=== PATIENT | male | born 1955 | race African-American/Black ===

== ENCOUNTER 2020-11-09 06:31 | Emergency (ER) | payer OTHER, SELFPAY ==
[2020-11-09 06:41] VITALS: BP 168/100; PULSE 69; RESP 16; TEMP 35.9; O2SAT 100
--- NOTE | 2020-11-09 07:11 | ED.SKABFB ---
HPI - Skin/Abscess/Foreign Bdy General Chief complaint: Skin/Abscess/Foreign Body Stated complaint: skin rash, possible infection Time Seen by Provider: 11/09/20 07:01 Source: patient Mode of arrival: ambulatory Limitations: no limitations History of Present Illness HPI narrative: The patient is a 65 yo male who presents for evaluation of rash to his lower extremities, increased on right lower extremity. Pt with blistering and itching overlying the area. Pt states it is red and warm. Pt denies fever or chills. He has tried hydrocortisone cream without success. Pts main complaint is itching at this time. He denies fever or chills. No new soaps, lotions or detergents. Patient reported symptoms began after mowing his lawn. Pt states he was concerned it was a spider bite at first. He does have a few sal[place] on his abdomen per patient. Related Data Allergies Allergy/AdvReac Type Severity Reaction Status Date / Time No Known Allergies Allergy Verified 11/09/20 08:10 Review of Systems Review of Systems: CONSTITUTIONAL: Denies fever CARDIOVASCULAR: Denies chest pain RESPIRATORY: Denies cough or dyspnea. GASTROINTESTINAL: Denies abdominal pain SKIN: Right lower extremity rash, bites to abdomen MUSCULOSKELETAL: Denies back pain NEUROLOGIC: Denies headache [facility] Social History Social History (Updated 11/09/20 @ 07:39 by Pearl Mixon MD) Alcohol intake: never Substance use: never Gender identity (if verbalized by the patient): Male Exam Narrative: GENERAL: Awake, alert, conversant HEAD: Normocephalic, atraumatic. EYES: PERRLA and EOMI. ENT: Nares clear, no rhinorrhea or epistaxis. Mucous membranes moist. NECK: Supple. CHEST: No respiratory distress, breathing even and non labored HEART: Regular rate, sinus rhythm ABDOMEN:Non distended, non tender EXTREMITIES: Normal range of motion. No edema. SKIN: Warm, right lower extremity erythema, mild warmth, scattered blistering to the posterior aspect of the right leg, nontender, no crepitus or ecchymosis. Approximately 8 cm. Not circumferential. Intact distal sensation. NEURO:No focal deficits. Alert and oriented x3 Course Vital Signs Vital signs: Vital Signs Temperature 35.9 C L 11/09/20 06:41 Pulse Rate 69 11/09/20 06:41 Respiratory Rate 16 11/09/20 06:41 Blood Pressure 168/100 H 11/09/20 06:41 Pulse Oximetry 100 11/09/20 06:41 Temperature 35.9 C L 11/09/20 06:41 Pulse Rate 69 11/09/20 06:41 Respiratory Rate 16 11/09/20 06:41 Blood Pressure 168/100 H 11/09/20 06:41 Pulse Oximetry 100 11/09/20 06:41 MDM - Skin/Abscess/Foreign Bdy MDM Narrative Medical decision making narrative: Patient presenting for evaluation of itchy, blistering rash to right lower extremity as well as scattered areas to the abdomen. Given symptoms occurred after the patient was outside, high on the differential includes contact dermatitis versus allergic reaction. No sign of necrotizing infection. No crepitus or bullae. Patient is systemically well appearing. Patient may have a superimposed cellulitis given the erythema, will prescribe a watch and wait prescription for antibiotics as patient has limited primary care physician follow-up, has been itching the area, may be concerning for superimposed cellulitis given appearance. Patient given Prednisone and Benadryl in the ER. He was then discharged home in stable condition. Differential Diagnosis Differential diagnosis: Likely abscess of skin or subcutaneous tissue, urticaria, allergic reaction to drug, cellulitis, insect bites and contact dermatitis Discharge Plan Discharge Clinical Impression: Contact dermatitis Patient Disposition: Home, Self-Care Condition: Stable Instructions: Antibiotic Form, Contact Dermatitis (ED) Additional Instructions: Please contact your primary care physician for follow up from this visit. You will need to have your blood pressure monitored and may need to restart your
[2020-11-09] MEDS: predniSONE 20 MG TABLET 60 MG PO (08:11)
[2020-11-09] MEDS: diphenhydrAMINE HCl CAP 25 MG CAPSULE PO (08:11)
== END 2020-11-09 08:50 | disposition home or self-care (01) ==
PROVIDERS: Emergency Provider Emergency Medicine
DX: L25.9 Unspecified contact dermatitis, unspecified cause (principal)
CPT/HCPCS: 99283; A9270; J7512

== ENCOUNTER 2021-06-01 10:57 | Outpatient (CLI) | payer OTHER, SELFPAY ==
--- NOTE | ~2021-06-01 | XR_ITS ---
EXAMINATION: XR foot RT min 3V DATE: 06/01/2021 11:42 INDICATION: Right foot bunion. TECHNIQUE: 3 views of right foot including standing views were obtained. COMPARISON: None. FINDINGS: There is mild hallux valgus. No fracture. There is mild osteoarthritis of middle naviculocu neiform joint, first tarsometatarsal joint, and some of the interphalangeal joints. There are entheso phytes at the posterior and plantar aspects of calcaneal tuberosity. IMPRESSION: 1. Mild hallux valgus. 2. Mild polyarticular osteoarthritis. Reviewed, dictated and finalized at location A. EL ELASTIC OPERATOR [employer]
--- NOTE | ~2021-06-01 | XR_ITS ---
EXAMINATION: XR foot LT min 3V DATE: 06/01/2021 11:42 INDICATION: Bunion. TECHNIQUE: 3 views of left foot including standing views were obtained. COMPARISON: None. FINDINGS: Bone alignment is normal. No fracture. There is mild osteoarthritis of first metatarsophala ngeal joint and some of the interphalangeal joints and midfoot joints. There are enthesophytes at the posterior and plantar aspects of calcaneal tuberosity. IMPRESSION: 1. Mild polyarticular osteoarthritis. Reviewed, dictated and finalized at location A. T ADMINISTRATOR
== END 2021-06-01 10:58 | disposition home or self-care (01) ==
DX: M19.072 Primary osteoarthritis, left ankle and foot (principal); M19.071 Primary osteoarthritis, right ankle and foot; M20.11 Hallux valgus (acquired), right foot
CPT/HCPCS: 73630

== ENCOUNTER 2022-05-24 06:53 | Emergency (ER) | payer OTHER, SELFPAY ==
--- NOTE | ~2022-05-24 | XR_ITS ---
EXAMINATION: XR finger 4th LT min 2V DATE: 05/24/2022 08:18 INDICATION: Left hand fourth digit injury. TECHNIQUE: 3 views of left hand fourth digit were obtained. COMPARISON: None. FINDINGS: There is hyperextension of fourth proximal interphalangeal joint. No fracture. There is mil d osteoarthritis of fourth distal interphalangeal joint. There is laceration and soft tissue swelling of the fourth digit. IMPRESSION: 1. No fracture or radiopaque foreign body. Reviewed, dictated and finalized at location A. CTOR SYSTEMS
[2022-05-24 07:19] VITALS: BP 146/99; PULSE 74; RESP 14; TEMP 36.3; O2SAT 100
--- NOTE | 2022-05-24 08:02 | ED.GENADULT ---
HPI - General Adult General Chief complaint: Wound/Laceration Stated complaint: finger lac Time Seen by Provider: 05/24/22 06:58 History of Present Illness HPI narrative: 67-year-old male presenting to the emergency department for evaluation of a laceration to his left fourth finger. Patient reports he was working at [employer] last night broke a glass and accidentally cut his finger on the glass. Patient denies any other pain or injury. Patient denies any numbness or weakness. Patient's tetanus is unknown and patient will be treated with tetanus in the ED. Related Data Allergies Allergy/AdvReac Type Severity Reaction Status Date / Time No Known Allergies Allergy Verified 05/24/22 07:22 Review of Systems Review of Systems: Injury to left hand All systems reviewed & are unremarkable except as noted in HPI and below PMFSH Social History Social History (Updated 11/09/20 @ 07:39 by Pearl Mixon MD) Alcohol intake: never Substance use: never Gender identity (if verbalized by the patient): Male Exam Narrative: APPEARANCE: Well appearing, no pain, no distress, well-nourished. HEAD: normocephalic, atraumatic. EYES: PERRLA/EOMI, conjunctivae clear. NOSE: Normal no drainage NECK: Supple. No adenopathy, no masses. RESPIRATORY: Airway patent, respirations nonlabored. Clear to auscultation bilaterally, no rales, rhonchi, wheezing. CARDIOVASCULAR: Regular rate and rhythm without murmurs rubs or gallops. ABDOMINAL: Soft, nontender, nondistended, normal bowel sounds MUSCULOSKELETAL: Moves all extremities. Laceration to lateral side of left fourth finger. Normal range of motion. No numbness or weakness. No evidence of vascular or tendon injury. NEURO: Alert. Cranial nerves II through XII intact. Good gait. Good coordination SKIN: Warm, dry. Normal Color Course Vital Signs Vital signs: Vital Signs Temperature 97.4 F L 05/24/22 07:19 Pulse Rate 74 05/24/22 07:19 Respiratory Rate 14 05/24/22 07:19 Blood Pressure 146/99 H 05/24/22 07:19 Pulse Oximetry 100 05/24/22 07:19 Oxygen Delivery Room Air 05/24/22 07:19 Temperature 97.4 F L 05/24/22 07:19 Pulse Rate 74 05/24/22 07:19 Respiratory Rate 14 05/24/22 07:19 Blood Pressure 146/99 H 05/24/22 07:19 Pulse Oximetry 100 05/24/22 07:19 Oxygen Delivery Room Air 05/24/22 07:19 Medical Decision Making Vital Signs Vital Signs: Vital Signs Temperature 97.4 F L 05/24/22 07:19 Pulse Rate 74 05/24/22 07:19 Respiratory Rate 14 05/24/22 07:19 Blood Pressure 146/99 H 05/24/22 07:19 Pulse Oximetry 100 05/24/22 07:19 Oxygen Delivery Room Air 05/24/22 07:19 Temperature 97.4 F L 05/24/22 07:19 Pulse Rate 74 05/24/22 07:19 Respiratory Rate 14 05/24/22 07:19 Blood Pressure 146/99 H 05/24/22 07:19 Pulse Oximetry 100 05/24/22 07:19 Oxygen Delivery Room Air 05/24/22 07:19 Discharge Plan Discharge Prescriptions: No Action cephalexin 500 mg capsule 500 mg PO Q8H 10 Days Qty: 30 0RF diphenhydramine HCl [Benadryl] 25 mg capsule 25 mg PO TID PRN (Reason: allergic reaction) Qty: 14 0RF prednisone 10 mg Tablets,Dose Pack See Taper PO DAILY 12 Days Qty: 42 0RF Taper: Prednisone Taper from 60 mg;12 days 60 mg DAILY for 2 Days and 0 Hour 50 mg DAILY for 2 Days and 0 Hour 40 mg DAILY for 2 Days and 0 Hour 30 mg DAILY for 2 Days and 0 Hour 20 mg DAILY for 2 Days and 0 Hour 10 mg DAILY for 2 Days and 0 Hour Follow-up/Referrals: PHYSICIAN,OPERATIONS INTELLIGENCE SUPERINTENDENT [Primary Care Provider] -
[2022-05-24] MEDS: TETANUS,DIPHTHERIA,AC PERTUSSIS ADULT (0.5 ML) BOOSTRIX IM (08:06)
[2022-05-24 08:42] VITALS: BP 148/76; PULSE 90; RESP 16; O2SAT 98
--- NOTE | 2022-05-24 09:30 | ED.WOUNDLAC ---
HPI - Wound/Laceration General Chief Complaint: Wound/Laceration <JORDANA Cabral Last Filed: 05/24/22 15:05> Stated Complaint: finger lac <JORDANA Cabral Last Filed: 05/24/22 15:05> Time Seen by Provider: 05/24/22 06:58 <JORDANA Cabral Last Filed: 05/24/22 15:05> History of Present Illness HPI narrative: 67-year-old male here for evaluation of laceration to his left fourth digit sustained last night while he was at work. Patient states that he cut his finger on a piece of glass. He attempted to dress it at home but was unable to control the bleeding. His tetanus is up-to-date. He denies any numbness, tingling, difficulty moving the digit. He states he is ambidextrous. <JORDANA Cabral Last Filed: 05/24/22 15:05> Related Data Allergies/Adverse Reactions: Allergies Allergy/AdvReac Type Severity Reaction Status Date / Time No Known Allergies Allergy Verified 05/24/22 07:22 <JORDANA Cabral Last Filed: 05/24/22 15:05> Review of Systems Review of Systems: Gen.: Denies fevers or chills Eyes: Denies eye pain or visual change ENT: Denies congestion Respiratory: Denies shortness of breath or cough CV: Denies chest pain or palpitations GI: Denies abdominal pain nausea, emesis or diarrhea denies burning, urgency, frequency or hematuria Musculoskeletal: Denies back pain or muscle pain Neuro: Denies numbness, tingling, weakness or focal weakness Skin: Reports laceration to left fourth digit Except as documented, all other systems reviewed and negative <JORDANA Cabral Last Filed: 05/24/22 15:05> [facility] Social History Social History: Social History (Updated 11/09/20 @ 07:39 by Pearl Mixon MD) Alcohol intake: never Substance use: never Gender identity (if verbalized by the patient): Male <JORDANA Cabral Filed: 05/24/22 15:05> Exam Narrative: Gen: Alert, oriented, no acute distress Eyes: EOMI, no icterus Pulm: Respirations even and unlabored, symmetric thorax expansion, no audible stridor or visible cyanosis CV: Regular rate per telemetry GI: No distension, no voluntary/involuntary guarding Neuro: AOx4, moves all extremities without apparent difficulty or weakness, follows commands MSK: Full range of motion in all digits without pain. Brisk capillary refill. Sensation intact to entirety of hand. Skin: Patient has a 2-1/2 cm irregular laceration to the ulnar aspect of his left fourth digit with no active bleeding Psych: Normal mood/affect, insight/judgement good, adequate fund of knowledge, recent/remote memory intact <Nayeli Gupta PA-C - Last Filed: 05/24/22 15:05> Course PRE KINDERGARTEN TEACHER/PA Physician Supervision I saw this patient primarily and the PA did the procedure and started the documentation. <Jadon Huynh MD - Last Filed: 05/24/22 18:57> Vital Signs Vital signs: Vital Signs Temperature 97.4 F L 05/24/22 07:19 Pulse Rate 74 05/24/22 07:19 Respiratory Rate 14 05/24/22 07:19 Blood Pressure 146/99 H 05/24/22 07:19 Pulse Oximetry 100 05/24/22 07:19 Oxygen Delivery Room Air 05/24/22 07:19 Temperature 97.4 F L 05/24/22 07:19 Pulse Rate 90 05/24/22 08:42 Respiratory Rate 16 05/24/22 08:42 Blood Pressure 148/76 H 05/24/22 08:42 Pulse Oximetry 98 05/24/22 08:42 Oxygen Delivery Room Air 05/24/22 07:19 <Nayeli Gupta PA-C - Last Filed: 05/24/22 15:05> Vital Signs Temperature 97.4 F L 05/24/22 07:19 Pulse Rate 74 05/24/22 07:19 Respiratory Rate 14 05/24/22 07:19 Blood Pressure 146/99 H 05/24/22 07:19 Pulse Oximetry 100 05/24/22 07:19 Oxygen Delivery Room Air 05/24/22 07:19 Temperature 97.4 F L 05/24/22 07:19 Pulse Rate 90 05/24/22 08:42 Respiratory Rate 16 05/24/22 08:42 Blood Pressure 148/76 H 05/24/22 08:42 Pulse Oximetry 98 05/24/22 08:42 Oxygen Delivery Ro
== END 2022-05-24 09:51 | disposition home or self-care (01) ==
PROVIDERS: Emergency Provider Emergency Medicine
DX: S61.215A Laceration without foreign body of left ring finger without damage to nail, initial encounter (principal); Z23 Encounter for immunization; W25.XXXA Contact with sharp glass, initial encounter
CPT/HCPCS: 12002; 73140; 90471; 90715; 99283

== ENCOUNTER 2024-02-20 11:36 | Inpatient (IN) | payer MEDICARE, SELFPAY ==
[2024-02-20] VITALS (9 sets, daily range): BP systolic 117–141; BP diastolic 75–95; PULSE 64–116; RESP 16–20; TEMP 35.8–36.7; O2SAT 99–100; BMI 22.1
--- NOTE | ~2024-02-20 | CT_ITS ---
EXAMINATION: CT abdomen pelvis w con DATE: 02/20/2024 13:17 INDICATION: Dark red stools. Prior perforated gastric ulcer. TECHNIQUE: Computed tomography (CT) of the abdomen and pelvis was performed with 100 mL Omnipaque-350 intravenous contrast. Automated exposure control and iterative reconstruction technique were employe d. The dose-length product was 244.98 mGy-cm. COMPARISON: None FINDINGS: Mild atelectasis in the bilateral lower lobes. There is mild bronchiectasis in the left lower lobe. M ild pectus excavatum. Heart size is normal. Atherosclerotic coronary artery calcification. No pericar dial or pleural effusion. There are multiple scattered small hepatic cysts measuring up to 1.2 cm. Ga llbladder, spleen, pancreas and bilateral adrenal glands are normal. 3 nonobstructing left renal ston es, the largest in the upper pole measuring 4 mm. Small region of cortical scarring and 5 mm cyst at the upper pole of the right kidney. There is moderate colonic diverticulosis with a sigmoid predomina nce. There is no adjacent inflammatory change to suggest diverticulitis. Small bowel and appendix ar e normal. Coarse calcifications within the enlarged prostate. Bladder is normal. No free intraperiton eal gas or fluid. Small fat-containing left inguinal hernia. No pathologically enlarged abdominal or pelvic lymphadenopathy. Lumbar levoscoliosis with moderate to severe spondylosis. IMPRESSION: 1. Diverticulosis. No acute intra-abdominal/pelvic process. 2. Nonobstructing left nephrolithiasis. 3. Prostatomegaly. Reviewed, dictated and finalized at location A. [facility]
--- NOTE | ~2024-02-20 | CT_ITS ---
EXAMINATION: CTA abdomen pelvis DATE: 02/22/2024 08:53 INDICATION: Active gastrointestinal hemorrhage. TECHNIQUE: Computed tomographic angiography (CTA) of the abdomen and pelvis was performed with 100 mL Omnipaque-350 intravenous contrast. Automated exposure control and iterative reconstruction techniqu e were employed. The dose-length product was 501.28 mGy-cm. Maximum intensity projection 3D-reconstru ctions of the aorta and other arteries were constructed by the technologist on a separate workstation . COMPARISON: CT abdomen and pelvis 02/20/2024 FINDINGS: The visualized portions of the lung bases demonstrate mild atelectasis. No pleural effusion . The heart size is normal. No pericardial effusion. Pectus excavatum is noted. There are cysts in th e liver measuring up to 14 mm. The gallbladder, spleen, pancreas, and adrenal glands are normal. Ther e is cortical thinning of the kidneys. There is a 2 mm stone in right kidney. There are 4 stones in t he left kidney measuring up to 5 mm. There is a left inguinal hernia containing fat. The prostate is mildly enlarged. There is diverticulosis of the colon without evidence of diverticulitis. There is li quid stool in the colon suggesting diarrhea. There are no dilated loops of bowel. The appendix is not visualized. There is no significant stenosis of celiac axis. There is moderate stenosis of superior mesenteric artery. There is no significant stenosis of the renal arteries. There is moderate stenosis of inferior mesenteric artery. There are no pathologically enlarged lymph nodes. There is no free in traperitoneal fluid. There is thoracolumbar levoscoliosis and severe spondylosis. IMPRESSION: 1. 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 2. Left inguinal hernia containing fat. Reviewed, dictated and finalized at location A. NT DEVELOPMENT ANALYST IMPRESSION: 1. Moderate stenosis of superior mesenteric artery and inferior mesenteric viki ry. 2. Left inguinal hernia containing fat.
--- NOTE | 2024-02-20 12:15 | ECG_ITS ---
Test Date: 2024-02-20 12:58:29 Measurements Intervals [place] Rate: 67 P: 60 MD: 152 QRS: -58 QRSD: 113 T: -28 QT: 395 QTc: 420 Interpretive Statements SINUS RHYTHM POSSIBLE LEFT ATRIAL ENLARGEMENT [ INCOMPLETE RIGHT BUNDLE BRANCH BLOCK CANNOT R/O SEPTAL INFARCT, AGE INDETERMINATE LEFT ANTERIOR FASCICULAR BLOCK POSSIBLE LEFT VENTRICULAR HYPERTROPHY ST-T WAVE ABNORMALITY IN INFEERIOR LEADS- CONSIDER ISCHEMIA ABNORMAL ECG No previous ECG available for comparison Electronically Signed On 02-20-2024 13:08:24 LEAK DETECTOR by Chalino Montgomery D.O.
[2024-02-20] MEDS: PANTOPRAZOLE SODIUM IV 40 MG VIAL IV PUSH (12:33)
[2024-02-20 12:37] LABS: Basophils Percent Auto 0.3 % (0.2-1.2); Eosinophils Percent Auto 0.3 % (0-4.4); Hematocrit 40.4 % (42.0-52.0); Hemoglobin 12.9 g/dL (14.0-18.0); Immature Granulocyte Absolute 0.01 K/mm3 (0.00-0.031); Immature Granulocyte Percent A 0.1 % (0-0.5); Lymphocytes Absolute Auto 1.58 K/mm3 (0.9-3.2); Lymphocytes Percent Auto 23.7 % (18.3-44.2); Mean Corpuscular HGB Conc 31.9 g/dl (32-36); Mean Corpuscular Hemoglobin 26.9 pg (26-34); Mean Corpuscular Volume 84.2 fl (80-100); Mean Platelet Volume 9.8 fl (7.4-10.4); Monocytes Absolute Auto 0.4 K/mm3 (0.1-0.6); Monocytes Percent Auto 5.5 % (2.6-8.5); Neutrophils Absolute Auto 4.7 K/mm3 (1.3-6.7); Neutrophils Percent Auto 70.1 % (45.5-73.1); Platelet Count Result 218 k/mm3 (150-375); Red Cell Distribution Width 15.4 % (11.5-14.5); White Blood Count 6.7 K/mm3 (4.5-10.0)
[2024-02-20 12:48] LABS: INR 1.1; Prothrombin Time 14.5 Seconds (11.1-14.7)
[2024-02-20 12:49] LABS: Alanine Aminotransferase 15 U/L (6-50); Albumin Level 4.1 g/dL (3.5-5.1); Alkaline Phosphatase 77 U/L (38-126); Anion Gap 6 mmol/L (4-12); Aspartate Amino Transferase 24 U/L (17-59); Bilirubin,Total 0.5 mg/dL (0.2-1.3); Blood Urea Nitrogen 16 mg/dL (9-20); Calcium 8.4 mg/dL (8.4-10.2); Carbon Dioxide 26 mmol/L (22-30); Chloride 110 mmol/L (98-107); Estimated CRCL calculation 60 ml/min; Estimated Glomerular Filt Rate > 60; Glucose 123 mg/dL (65-110); Lipase 97 U/L (23-300); Partial Thromboplastin Time 27.9 Seconds (22.3-36.8); Potassium 3.9 mmol/L (3.4-5.0); Sodium 142 mmol/L (137-145)
--- NOTE | 2024-02-20 13:00 | ED_ITS ---
HPI - GI Bleed General Chief complaint: GI Bleed Stated complaint: Blood in stool Time Seen by Provider: 02/20/24 11:52 Source: patient Mode of arrival: ambulatory Limitations: no limitations History of Present Illness HPI Narrative: 68 years old male drove himself to the emergency room, came from work complaining of bloody diarrhea started yesterday, today have at least 3 BM with fresh red bright blood. Patient denies any chest pain shortness of breath abdominal pain or back pain. Patient is not on anti-platelet or anticoagulant medication. Patient used to have history of hypertension stop taking medication on his own over 1 year ago. Patient does not smoke or drink or use drugs. History of perforated peptic ulcer disease 1997 at [place] Related Data Allergies Allergy/AdvReac Type Severity Reaction Status Date / Time No Known Allergies Allergy Verified 02/20/24 11:57 Review of Systems Review of Systems: All systems reviewed & are unremarkable except as noted in HPI and below PMFSH Past Medical History Medical History (Updated 02/20/24 @ 16:01 by Luna Pastor MD) Hypertension Social History Social History (Updated 02/20/24 @ 15:21 by Maryellen Aly PA-C) Social History: Surrogate medical decision maker: Code status: Full code. Alcohol intake: never Substance use: never Exam Narrative: General appearance: Well-developed, well-nourished Skin: Normal color Head: Normocephalic, nontraumatic Eyes: Clear conjunctiva ENT: Oropharynx normal, ears normal, nose normal Neck: Supple, nontender Chest and respiratory: Airway patent, no respiratory distress, no accessory muscle use Heart: Regular rate/rhythm Abdomen: Soft, nontender, no organomegaly, quiet bowel sounds rectal exam showed fresh red bright blood guaiac-positive Vascular: Normal peripheral pulses, normal capillary refill. 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 tested, no gross motor deficit Course Consultations Consultation #1: DR HO Date: 02/20/24 Vital Signs Vital signs: Vital Signs Temperature 35.8 C L 02/20/24 11:41 Pulse Rate 98 02/20/24 11:41 Respiratory Rate 20 02/20/24 11:41 Blood Pressure 123/86 02/20/24 11:41 Pulse Oximetry 100 02/20/24 11:41 Oxygen Delivery Room Air 02/20/24 11:41 Temperature 35.8 C L 02/20/24 11:41 Pulse Rate 68 02/20/24 14:41 Respiratory Rate 16 02/20/24 14:41 Blood Pressure 138/95 H 02/20/24 14:41 Pulse Oximetry 99 02/20/24 14:41 Oxygen Delivery Room Air 02/20/24 11:41 MDM - GI Bleed MDM Narrative Medical decision making narrative: 68 years old male drove himself to the emergency room com plaining of bloody diarrhea started yesterday. Vital signs are stable Physical examination showing comfortable patient, rectal exam showing liquidy pink stool, guaiac positive Differential diagnosis include viral gastroenteritis inflammatory bowel disease infectious bowel disease, GI bleed, electrolyte imbalance, anemia Blood workup today includes CBC, CMP, lipase and troponin showed hemoglobin of 12.9, hematocrit 40.4, no old records for comparison, otherwise insignificant findings CT abdomen and pelvis with IV contrast showed no acute intra-abdominal process EKG on arrival showed normal sinus rhythm at 67 beats per minute no old EKG for comparison Consult Dr. Ho Admit to hospitalist Differential Diagnosis Differential diagnosis: Likely other (As above) Medical Records Attestation: I reviewed the patient's medical records. Lab Data Attestation: I reviewed the patient's lab results. 02/20/24 12:29 02/20/24 12:29 Labs: Lab Results 02/20/24 02/20/24 02/20/24 Range/Units 12:28 12:29 15:02 WBC 6.7 (4.5-10.0) K/mm3 RBC 4.80 (4.6-6.20) M/mm3 Hgb 12.9 L (14.0-18.0) g/dL Hct 40.4 L (42.0-52.0) % MCV 84.2 (80-100) fl MCH 26.9 (26-34) pg MCHC 31.9 L (32-36) g/dl RDW 15.4 H (11.5-14.5) % Plt Count 218 (150-375) k/mm3 MPV 9.8 (7.4-10.4) fl Immature Gran % (Auto) 0.1 (0-0.5) % Neut % (Auto) 70.1 (45.5-73.1) % Lymph % (Auto) 23.7 (18.3-44.2) % [place] % (Auto) 5.5 (2.6-8.5) % Eos % (Auto) 0.3 (0-4.4) % Baso % (Auto) 0.3 (0.2-1.2) % Lymph # (Auto) 1.58 (0.9-3.2) K/mm3 [place] # (Auto) 0.4 (0.1-0.6) K/mm3 Eos # (Auto) 0.0 (0-0.3) K/mm3 Baso # (Auto) 0.0 (0.0-0.1) K/mm3 Abs Immat Gran (auto) 0.01 (0.00-0.031) K/mm3 Absolute Neuts (auto) 4.7 (1.3-6.7) K/mm3 Absolute Nucleated RBC 0.000 (0.0-0.012) K/mm3 Nucleated RBC % 0.0 (0.0-0.2) % PT 14.5 (11.1-14.7) Seconds INR 1.1 APTT 27.9 (22.3-36.8) Seconds Sodium 142 (137-145) mmol/L Potassium 3.9 (3.4-5.0) mmol/L Chloride 110 H (98-107) mmol/L Carbon Dioxide 26 (22-30) mmol/L Anion Gap 6 (4-12) mmol/L BUN 16 (9-20) mg/dL Creatinine 1.00 (0.7-1.3) mg/dL Estim Creat Clear Calc 60 ml/min Estimated GFR > 60 (59 - ) Glucose 123 H (65-110) mg/dL Calcium 8.4 (8.4-10.2) mg/dL Total Bilirubin 0.5 (0.2-1.3) mg/dL AST 24 (17-59) U/L ALT 15 (6-50) U/L Alkaline Phosphatase 77 (38-126) U/L Troponin I < 0.012 < 0.012 (0.000-0.034) ng/mL Total Protein 7.0 (6.3-8.2) g/dL Albumin 4.1 (3.5-5.1) g/dL Lipase 97 (23-300) U/L Blood Type A Positive Antibody Screen Negative Imaging Data Radiologist's impression: Impressions Abdomen/Pelvis CT 02/20/24 13:28 IMPRESSION: 1. Diverticulosis. No acute intra-abdominal/pelvic process. 2. Nonobstructing left nephrolithiasis. 3. Prostatomegaly. ECG Data EKG #1: Attestation: I personally reviewed and interpreted this ECG as follows: ECG completion date: 02/20/24 ECG completion time: 15:53 Prior ECG tracings: not available for review Interpretation: Normal sinus rhythm at 67 beats per minute, left atrial enlargement, incomplete right bundle-branch block, cannot rule out septal infarct, age indeterminate, possibly left ventricular hypertrophy, ST T-wave abnormality in inferior leads consider ischemia, abnormal EKG no previous EKG available for comparison EKG #2: Attestation: I personally reviewed and interpreted this ECG as follows: ECG completion date: 02/20/24 Prior ECG tracings: available for review Interpretation: Normal sinus rhythm at 69 beats per minute, left atrial enlargement, incomplete right bundle-branch block, possibly left ventricular hypertrophy, nonspecific T- wave abnormality compared to EKG on 02/20/2020 for myocardial infarction finding no longer present Critical Care Time Critical Care Time Critical Care Time: No Discharge Plan Discharge Clinical Impression: Bloody diarrhea Patient Disposition: Still a Patient Condition: Stable Additional Instructions: ADMIT TO HOSPITAL Prescriptions: No Action cephalexin 500 mg capsule 500 mg PO Q8H 10 Days Qty: 30 0RF diphenhydramine HCl [Benadryl] 25 mg capsule 25 mg PO TID PRN (Reason: allergic reaction) Qty: 14 0RF prednisone 10 mg Tablets,Dose Pack See Taper PO DAILY 12 Days Qty: 42 0RF Taper: Prednisone Taper from 60 mg;12 days 60 mg DAILY for 2 Days and 0 Hour 50 mg DAILY for 2 Days and 0 Hour 40 mg DAILY for 2 Days and 0 Hour 30 mg DAILY for 2 Days and 0 Hour 20 mg DAILY for 2 Days and 0 Hour 10 mg DAILY for 2 Days and 0 Hour cephalexin 500 mg capsule 500 mg PO Q12H Qty: 10 0RF Follow-up/Referrals: UNKNOWN,DOCTOR [Primary Care Provider] -
--- NOTE | 2024-02-20 13:08 | PC.NURSE ---
MD Pastor at bedside to assess pt. after EKG result. Pt. denies chest pain or SOB. No additional interventions at this time.
--- NOTE | 2024-02-20 13:55 | ECG_ITS ---
Test Date: 2024-02-20 15:15:19 Measurements Intervals [place] Rate: 69 P: 64 CT: 158 QRS: -55 QRSD: 115 T: -26 QT: 406 QTc: 437 Interpretive Statements SINUS RHYTHM POSSIBLE LEFT ATRIAL ENLARGEMENT INCOMPLETE RIGHT BUNDLE BRANCH BLOCK LEFT ANTERIOR FASCICULAR BLOCK POSSIBLE LEFT VENTRICULAR HYPERTROPHY CANNOT R/O SEPTAL INFARCT, AGE INDETERMINATE ST-T WAVE ABNORMALITY IN INFERIOR LEADS- CONSIDER ISCHEMIA ABNORMAL ECG Compared to ECG 02/20/2024 12:58:29 NO SIGNIFICANT CHANGE Electronically Signed On 02-20-2024 19:25:33 RESEARCH PHYSICIST by Chalino Montgomery D.O.
[2024-02-20 14:01] LABS: Troponin I < 0.012 ng/mL (0.000-0.034)
--- NOTE | 2024-02-20 15:20 | P.HP_ITS ---
H&P: HPI History of Present Illness Date/Time: 02/20/24 16:20 Chief Complaint: Blood in stools. Narrative: This is a very pleasant 68-year-old male with hypertension (not currently on medication) and remote history of peptic ulcers who presented to the emergency department via private vehicle for evaluation of blood in stools. The patient provides the following history. He was in his usual state of health yesterday evening when he developed diarrhea with blood tinged stools. Since that time he has had several more episodes of bloody stools described as pink to bright red blood. He is otherwise feeling okay. He denies straining to have a bowel movement. Weight has remained stable. He has never had a colonoscopy and denies family history of colon cancer. He also denies fever, chills, sweats, lightheadedness, dizziness, abdominal pain, nausea, and vomiting. Of note, an EKG was performed on arrival to the ED and showed ST T-wave abnormalities for which the inorganic chemistry professor was consulted. As the patient is having no chest pain whatsoever they do not recommend any for interventions at this time but will follow with the patient. With further questioning the patient denies having a cardiac history and has not had exertional chest pain or shortness of breath. In the ED: Vital signs were stable on arrival. Labs were significant for hemoglobin of 12.9, hematocrit 40.4%, glucose 123. CT of the abdomen and pelvis showed no acute findings but noted diverticulosis, nonobstructing left nephrolithiasis, and prostatomegaly. He is being admitted in this setting for close monitoring and GI consultation. Review of Systems Review of Systems: 12 systems were reviewed and are negativ e except for as per HPI. [facility] Past Medical History Medical History (Updated 02/20/24 @ 21:49 by Maryellen Aly PA-C) Hypertension Perforated peptic ulcer (1977) Surgical History Surgical History (Updated 02/20/24 @ 21:46 by Maryellen Aly PA-C) History of exploratory laparotomy for perforated peptic ulcer Family History Family History (Updated 02/20/24 @ 21:46 by Maryellen Aly PA-C) Other Family history non-contributory Social History Social History (Updated 02/20/24 @ 21:47 by Maryellen Aly PA-C) Social History: Surrogate medical decision maker: Cindy Matson, spouse. Code status: Full code. Smoking status: Never smoker Alcohol intake: never Substance use: never Substance use type: does not use Do You Feel Safe in your Home?: Yes Lack of Transportation: No Lack of Food: Never True Current Housing: I Have Housing Concerned About Future Housing: No Difficulty Paying Gas/Electric Bills: No Difficulty Paying for Meds: No Currently Unemployed: No Education: Decline to Answer Difficulty w/ Childcare or Family Care: No Spiritual care concerns: No Meds Home Medications and Allergies Home Medications Medication Instructions Recorded Confirmed Type No Home Medications 02/20/24 02/20/24 History Allergies Allergy/AdvReac Type Severity Reaction Status Date / Time No Known Allergies Allergy Verified 02/20/24 11:57 Vital Signs Vital Signs - 24 hr 02/20/24 11:41 02/20/24 14:41 Temperature 96.4 F L Pulse Rate 98 68 Respiratory Rate 20 16 Blood Pressure 123/86 138/95 H Pulse Oximetry 100 99 Oxygen Delivery Room Air Exam Narrative: General: Nontoxic-appearing gentleman the semi-Garcia position in bed. Weight: 70 kg. BMI: 22.1. HEENT: PERRL, EOMI. Sclera anicteric. Oral mucosa moist. Oropharynx clear. Neck: Supple. Respiratory: Lungs are clear to auscultation bilaterally. Cardiovascular: Regular rate and rhythm with S1-S2. Gastrointestinal: Abdomen is soft, nontender, and nondistended with positive bowel sounds. Skin: Warm and dry. No rash or lesions on limited exam. Extremities: No cyanosis, clubbing, or edema. Radial and pedal pulses intact. Neurological: Alert. Cranial nerves 2-12 are grossly intact. No gross focal deficits to casual conversation. Psychiatric: Pleasant and cooperative with normal mood and affect. Judgment and insight intact. H&P: Results Labs Labs: Short CBC 02/20/24 Range/Units 12:29 WBC 6.7 (4.5-10.0) K/mm3 Hgb 12.9 L (14.0-18.0) g/dL Hct 40.4 L (42.0-52.0) % Plt Count 218 (150-375) k/mm3 BMP 02/20/24 12:29 Sodium 142 Potassium 3.9 Chloride 110 H Carbon Dioxide 26 BUN 16 Creatinine 1.00 Glucose 123 H Calcium 8.4 Cardiac Enzymes 02/20/24 Range/Units 12:28 Troponin I < 0.012 (0.000-0.034) ng/mL Liver Function 02/20/24 Range/Units 12:29 Total Bilirubin 0.5 (0.2-1.3) mg/dL AST 24 (17-59) U/L ALT 15 (6-50) U/L Alkaline Phosphatase 77 (38-126) U/L Albumin 4.1 (3.5-5.1) g/dL Imaging Abdomen/Pelvis CT 02/20/24 13:28 IMPRESSION: 1. Diverticulosis. No acute intra-abdominal/pelvic process. 2. Nonobstructing left nephrolithiasis. 3. Prostatomegaly. Assessment and Plan Assessment and plan (1) Rectal bleeding: Code(s): K62.5 - Hemorrhage of anus and rectum Status: Acute (2) Diverticulosis: Code(s): K57.90 - Diverticulosis of intestine, part unspecified, without perforation or abscess without bleeding Status: Acute (3) Abnormal EKG: Code(s): R94.31 - Abnormal electrocardiogram [ECG] [EKG] Status: Acute (4) Hypertension: Code(s): I10 - Essential (primary) hypertension Status: Acute Plan The patient presented to the emergency department for evaluation of bloody diarrhea as detailed in HPI. Labs, imaging, EKG, and all reports were personally reviewed. CT scan did not show any acute findings but did note diverticulosis. Bleeding may be related to diverticulosis however does not seem to be in significant quantities. GI has been consulted and their input is appreciated. Hemoglobin and hematocrit will be trended. Regarding his EKG changes, he gives no history of exertional chest pain and is not having any discomfort. ED physician spoke with the on-call interventionalist to recommended monitoring on telemetry, obtain echocardiogram, and consulting with the inorganic chemistry professor. Blood pressures were reviewed and they are stable. His home medications will be reviewed and resumed as appropriate. Findings and treatment plan were discussed with the patient. Questions were solicited and answered to satisfaction. The patient's medical management will be taken over by the hospitalist team in a.m. Quality VTE Prophylaxis VTE prophylaxis: mechanical ordered If No VTE Prophylaxis Answer both mechanical and pharmacologic: Reason no pharmacologic proph: medical contraindication (rectal bleeding) The patient has been admitted under observation status. Hospitalist [facility] Advance Care Plan I have confirmed that the patient's Advanced Care Plan is present, code status is documented, or surrogate decision maker is listed in patient medical record.: Yes Medication Reconciliation I have utilized all available resources to obtain, update and review the patients current medications (includes all prescriptions, OTC, herbals, cannabis, and nutritional supplements).: Yes
[2024-02-20 15:28] LABS: Troponin I < 0.012 ng/mL (0.000-0.034)
--- NOTE | 2024-02-20 15:28 | WPDGICN ---
Assessment and Plan Assessment and plan (1) Rectal bleeding: Code(s): K62.5 - Hemorrhage of anus and rectum Status: Acute Assessment and Plan: The patient's rectal bleeding episodes are compatible with inflammatory type of diarrhea rather than a massive lower GI bleeding. Diverticular bleeding is another possibility, but this is typically more dramatic and associated with maroon stools rather than bright red, especially if the patient is hemodynamically stable. Colorectal cancer is another possibility to be kept in mind, especially because the patient never had a colonoscopy. We will send stools for culture and obtain H&H every 12 hours for monitoring purposes. Since the patient never had a colonoscopy, will plan to do it sometime next week once his cardiac status is clarified. GI Consult Note Consult date/time: 02/20/24 15:28 HPI: Matt Matson is a 68 year old male with a history of hypertension and perforated peptic ulcer operated in 1997. He was in his usual state of health until last night when he started to have diarrhea with blood tinged stools. There is no tenesmus, abdominal pain, fever, previous change in bowel habits the, near syncopal episodes, weakness or dizziness. The patient describes pinkish stools and had 3 bowel movements in the past 12 hours. He was found to be hemodynamically stable at his arrival to emergency room and is currently being admitted for monitoring purposes and for the evaluation of new onset EKG abnormalities in the absence of chest pain or shortness of breath. Review of Systems Review of Systems: All systems reviewed & are unremarkable except as noted in HPI and below PMFSH Past Medical History Medical History (Updated 02/20/24 @ 15:21 by Maryellen Aly PA-C) Hypertension Social History Social History (Updated 02/20/24 @ 15:21 by Maryellen Aly PA-C) Social History: Surrogate medical decision maker: Code status: Full code. Alcohol intake: never Substance use: never Meds Home Medications and Allergies Home Medications Medication Instructions Recorded Confirmed Type cephalexin 500 mg capsule 500 mg PO Q8H 10 days #30 caps 11/09/20 Rx diphenhydramine HCl 25 mg capsule 25 mg PO TID PRN allergic reaction 11/09/20 Rx (Benadryl) #14 caps prednisone 10 mg tablets in a dose See Taper PO DAILY 12 days #42 tabs 11/09/20 Rx pack cephalexin 500 mg capsule 500 mg PO Q12H #10 caps 05/24/22 Rx Allergies Allergy/AdvReac Type Severity Reaction Status Date / Time No Known Allergies Allergy Verified 02/20/24 11:57 Vital Signs Vital Signs - 24 hr 02/20/24 11:41 02/20/24 14:41 Temperature 96.4 F L Pulse Rate 98 68 Respiratory Rate 20 16 Blood Pressure 123/86 138/95 H Pulse Oximetry 100 99 Oxygen Delivery Room Air Exam Const: General: cooperative and healthy appearing Resp: Effort & Inspection: normal respiratory effort and able to speak in complete sentences Auscultation: clear to auscultation bilaterally Cardio: Rate: regular rate Rhythm: regular rhythm GI: Inspection: normal to inspection GI Palp: No No hepatosplenomegaly present Auscultation: normal bowel sounds Rectal Exam: deferred Skin: General skin exam: normal color Psych: Appearance: grossly normal Mental Status: mental status grossly normal Results Labs 02/20/24 12:29 02/20/24 12:29 Labs: Short CBC 02/20/24 Range/Units 12:29 WBC 6.7 (4.5-10.0) K/mm3 Hgb 12.9 L (14.0-18.0) g/dL Hct 40.4 L (42.0-52.0) % Plt Count 218 (150-375) k/mm3 BMP 02/20/24 12:29 Sodium 142 Potassium 3.9 Chloride 110 H Carbon Dioxide 26 BUN 16 Creatinine 1.00 Glucose 123 H Calcium 8.4 Cardiac Enzymes 02/20/24 Range/Units 12:28 Troponin I < 0.012 (0.000-0.034) ng/mL Liver Function 02/20/24 Range/Units 12:29 Total Bilirubin 0.5 (0.2-1.3) mg/dL AST 24 (17-59) U/L ALT 15 (6-50) U/L Alkaline Phosphatase 77 (38-126) U/L Albumin 4.1 (3.5-5.1) g/dL
[2024-02-20 17:02] LABS: Basophils Percent Auto 0.3 % (0.2-1.2); Eosinophils Percent Auto 0.4 % (0-4.4); Hematocrit 42.9 % (42.0-52.0); Immature Granulocyte Absolute 0.01 K/mm3 (0.00-0.031); Immature Granulocyte Percent A 0.1 % (0-0.5); Lymphocytes Absolute Auto 2.01 K/mm3 (0.9-3.2); Lymphocytes Percent Auto 29.9 % (18.3-44.2); Mean Corpuscular HGB Conc 32.6 g/dl (32-36); Mean Corpuscular Volume 82.8 fl (80-100); Mean Platelet Volume 10.5 fl (7.4-10.4); Monocytes Absolute Auto 0.3 K/mm3 (0.1-0.6); Monocytes Percent Auto 4.9 % (2.6-8.5); Neutrophils Absolute Auto 4.3 K/mm3 (1.3-6.7); Neutrophils Percent Auto 64.4 % (45.5-73.1); Platelet Count Result 204 k/mm3 (150-375); Red Blood Count 5.18 M/mm3 (4.6-6.20); Red Cell Distribution Width 15.3 % (11.5-14.5); White Blood Count 6.7 K/mm3 (4.5-10.0)
--- NOTE | 2024-02-20 17:13 | PC.NURSE ---
This RN received report from MEDICAL MICROBIOLOGIST.
--- NOTE | 2024-02-20 17:39 | ADMGEN ---
This patient, Matt Matson, was admitted to IMU Room 200-01 @ [id number]. Patient/family oriented to hospital policies and general routines including ID bracelet, bed and alarms, visiting hours, pain management, procedures, bathroom and other care routines, personal items, smoking policy, room service/diet, and visiting hours. Information on how to activate the Rapid Response Team has been discussed. Patient/Family are encouraged to report perceived risks to care and to ask questions if they do not understand what they are told or what they should do.
[2024-02-20] MEDS: SODIUM CHLORIDE 0.9% IV 1,000 ML 150 ML IV CONT (18:13)
[2024-02-20 22:48] LABS: Hematocrit 31.8 % (42.0-52.0); Hemoglobin 10.4 g/dL (14.0-18.0)
[2024-02-21] VITALS (16 sets, daily range): BP systolic 128–148; BP diastolic 63–82; PULSE 63–84; RESP 20; TEMP 36.5–37.4; O2SAT 99–100
[2024-02-21] MEDS: SODIUM CHLORIDE 0.9% IV 1,000 ML 150 ML IV CONT (00:28)
[2024-02-21 04:06] LABS: Hematocrit 30.6 % (42.0-52.0); Hemoglobin 9.6 g/dL (14.0-18.0); Mean Corpuscular HGB Conc 31.4 g/dl (32-36); Mean Corpuscular Hemoglobin 26.4 pg (26-34); Mean Corpuscular Volume 84.1 fl (80-100); Mean Platelet Volume 10.3 fl (7.4-10.4); Platelet Count Result 171 k/mm3 (150-375); Red Blood Count 3.64 M/mm3 (4.6-6.20); White Blood Count 5.2 K/mm3 (4.5-10.0)
[2024-02-21 04:28] LABS: Anion Gap 2 mmol/L (4-12); Blood Urea Nitrogen 15 mg/dL (9-20); Calcium 7.3 mg/dL (8.4-10.2); Carbon Dioxide 23 mmol/L (22-30); Chloride 113 mmol/L (98-107); Estimated CRCL calculation 66 ml/min; Estimated Glomerular Filt Rate > 60; Glucose 90 mg/dL (65-110); Potassium 3.8 mmol/L (3.4-5.0); Sodium 138 mmol/L (137-145)
[2024-02-21 09:49] LABS: Hematocrit 30.1 % (42.0-52.0); Hemoglobin 9.7 g/dL (14.0-18.0)
--- NOTE | 2024-02-21 10:50 | PM.CNCAR ---
Assessment and Plan Assessment and plan (1) Abnormal EKG: Code(s): R94.31 - Abnormal electrocardiogram [ECG] [EKG] Status: Acute Plan Hypertension controlled Abnormal EKG with nonspecific ST wave changes likely related to hypertension was unremarkable cardiac examination Lower GI bleeding Plan Transthoracic echocardiogram Can proceed with colonoscopy and endoscopy from cardiac standpoint for evaluation management of GI bleeding History of Present Illness History of Present Illness Consult date/time: 02/21/24 10:50 Reason For Visit: Bloody Diarrhea/EDG With Ischemic Changes Narrative: 68-year-old male patient presented to the hospital with recurrent episodes of bloody bowel movements. Since Friday patient has several bowel movements that are fall of bright red blood. There is no pain or discomfort. He has no fever or chills. Is no history of colon cancer. In the ED he was found to have EKG abnormality with nonspecific ST wave changes. Patient denies any chest pain or shortness of breath. He has no history of heart problem. Has history of hypertension has been controlled. Review of Systems Review of Systems: All systems reviewed & are unremarkable except as noted in HPI and below PMFSH Past Medical History Medical History (Updated 02/20/24 @ 21:49 by Maryellen Aly PA-C) Hypertension Perforated peptic ulcer (1977) Surgical History Surgical History (Updated 02/20/24 @ 21:46 by Maryellen Aly PA-C) History of exploratory laparotomy for perforated peptic ulcer Family History Family History (Updated 02/20/24 @ 21:46 by Maryellen Aly PA-C) Other Family history non-contributory Social History Social History (Updated 02/20/24 @ 21:47 by Maryellen Aly PA-C) Social History: Surrogate medical decision maker: Cindy Matson, spouse. Code status: Full code. Smoking status: Never smoker Alcohol intake: never Substance use: never Substance use type: does not use Do You Feel Safe in your Home?: Yes Lack of Transportation: No Lack of Food: Never True Current Housing: I Have Housing Concerned About Future Housing: No Difficulty Paying Gas/Electric Bills: No Difficulty Paying for Meds: No Currently Unemployed: No Education: Decline to Answer Difficulty w/ Childcare or Family Care: No Spiritual care concerns: No Meds Home Medications and Allergies Home Medications Medication Instructions Recorded Confirmed Type No Home Medications 02/20/24 02/20/24 History Allergies Allergy/AdvReac Type Severity Reaction Status Date / Time No Known Allergies Allergy Verified 02/20/24 11:57 Vital Signs Vital Signs - 24 hr 02/20/24 11:41 02/20/24 14:41 02/20/24 16:39 Temperature 35.8 C L Pulse Rate 98 68 85 Respiratory Rate 20 16 16 Blood Pressure 123/86 138/95 H 130/86 Pulse Oximetry 100 99 99 Oxygen Delivery Room Air 02/20/24 18:02 02/20/24 18:00 02/20/24 17:30 Temperature 36.7 C Pulse Rate 116 H 64 Respiratory Rate 20 Blood Pressure 141/83 H Pulse Oximetry 99 Oxygen Delivery Room Air 02/20/24 20:12 02/20/24 23:27 02/20/24 20:00 Temperature 36.7 C 36.7 C Pulse Rate 71 64 74 Respiratory Rate 20 20 Blood Pressure 128/79 117/75 Pulse Oximetry 100 100 Oxygen Delivery 02/20/24 22:00 02/21/24 00:00 02/21/24 02:00 Temperature Pulse Rate 68 63 68 Respiratory Rate Blood Pressure Pulse Oximetry Oxygen Delivery 02/21/24 04:04 02/21/24 04:00 02/21/24 06:00 Temperature 36.8 C Pulse Rate 74 67 64 Respiratory Rate 20 Blood Pressure 148/72 H Pulse Oximetry 99 Oxygen Delivery 02/21/24 08:00 Temperature 37.4 C Pulse Rate 78 Respiratory Rate 20 Blood Pressure 146/78 H Pulse Oximetry 99 Oxygen Delivery Exam Const: General: comfortable and no acute distress Other: Able to lie flat HENMT: Face/Nose/Sinus: Normal nares present and no epistaxis Mouth: Yes moist mucous membranes Eyes: Sclera: sclerae normal Pupils: Equal, round and reactive pupils present Neck: Neck: supple and no JVD Carotids: no bruits Resp: Auscultation: clear to auscultation bilaterally and lung sounds not diminished Other: No chest wall tenderness Cardio: Rate: regular rate Rhythm: regular rhythm Heart sounds: no gallops, no murmurs and no rubs GI: GI Palp: Yes Soft to palpation and No Tenderness to palpation present (GI) Auscultation: normal bowel sounds Skin: General skin exam: normal color, rashes and/or lesions noted and no erythema Other: Warm Neuro: Cranial nerves: Yes Equal, round and reactive pupils present Speech: normal speech Other: No obvious focal deficit or facial asymmetry Extrem: General: no edema Other: Normal capillary refills Intact distal pulses. Results Labs and Meds 02/21/24 09:32 02/21/24 03:38 Lab results: Cardiac Enzymes 02/20/24 02/20/24 02/20/24 Range/Units 12:28 12: 15:02 AST 24 (17-59) U/L Troponin I < 0.012 < 0.012 (0.000-0.034) ng/mL Coagulation 02/20/24 Range/Units 12:29 PT 14.5 (11.1-14.7) Seconds APTT 27.9 (22.3-36.8) Seconds CBC 02/20/24 02/20/24 02/20/24 Range/Units 12: 16:50 22:33 WBC 6.7 6.7 (4.5-10.0) K/mm3 RBC 4.80 5.18 (4.6-6.20) M/mm3 Hgb 12.9 L 14.0 10.4 L D (14.0-18.0) g/dL Hct 40.4 L 42.9 31.8 L (42.0-52.0) % Plt Count 218 204 (150-375) k/mm3 Lymph # (Auto) 1.58 2.01 (0.9-3.2) K/mm3 Greene # (Auto) 0.4 0.3 (0.1-0.6) K/mm3 Eos # (Auto) 0.0 0.0 (0-0.3) K/mm3 Baso # (Auto) 0.0 0.0 (0.0-0.1) K/mm3 02/21/24 02/21/24 Range/Units 03:39 09:32 WBC 5.2 (4.5-10.0) K/mm3 RBC 3.64 L (4.6-6.20) M/mm3 Hgb 9.6 L 9.7 L (14.0-18.0) g/dL Hct 30.6 L 30.1 L (42.0-52.0) % Plt Count 171 (150-375) k/mm3 Lymph # (Auto) (0.9-3.2) K/mm3 Greene # (Auto) (0.1-0.6) K/mm3 Eos # (Auto) (0-0.3) K/mm3 Baso # (Auto) (0.0-0.1) K/mm3 Comprehensive Metabolic Panel 02/20/24 02/21/24 Range/Units 12:29 03:38 Sodium 142 138 (137-145) mmol/L Potassium 3.9 3.8 (3.4-5.0) mmol/L Chloride 110 H 113 H (98-107) mmol/L Carbon Dioxide 26 23 (22-30) mmol/L BUN 16 15 (9-20) mg/dL Creatinine 1.00 0.90 (0.7-1.3) mg/dL Glucose 123 H 90 (65-110) mg/dL Calcium 8.4 7.3 L (8.4-10.2) mg/dL AST 24 (17-59) U/L ALT 15 (6-50) U/L Alkaline Phosphatase 77 (38-126) U/L Total Protein 7.0 (6.3-8.2) g/dL Albumin 4.1 (3.5-5.1) g/dL Intake and Output 02/20/24 02/21/24 02/21/24 23:59 07:59 15:59 Intake Total 240 1000 Balance 240 1000 Intake: IV 1000 Sodium Chloride 0.9% IV 1,000 1000 ml @ 150 mls/hr IV CONT .[id number] ONE Rx#:[id number] Oral 240 Other: # Unmeasured Voids 1 Number of Bowel Movements Today 1 Patient Weight 02/21/24 23:59 Weight 70 kg
--- NOTE | 2024-02-21 11:34 | P.PNIM_ITS ---
Progress Note: A&P Assessment and Plan (1) Rectal bleeding: Code(s): K62.5 - Hemorrhage of anus and rectum Status: Acute (2) Diverticulosis: Code(s): K57.90 - Diverticulosis of intestine, part unspecified, without perforation or abscess without bleeding Status: Acute (3) Abnormal EKG: Code(s): R94.31 - Abnormal electrocardiogram [ECG] [EKG] Status: Acute (4) Hypertension: Code(s): I10 - Essential (primary) hypertension Status: Acute Plan GI bleed r/o Dysentery GI eval noted Patient noted he is having cathie blood without stool F/u stool culture per GI for Colonoscopy GI following Monitor Hb, iron panel pending Diverticulosis continue monitoring HTN titrate home meds with clinical course DVT prophylaxis on SCDs Subjective Date/time seen: 02/21/24 11:34 Interval history: Patient noted he is still having bloody bowel movement Gi planning colonoscopy Review of Systems Review of Systems: 12 systems were reviewed and are negativ e except for as per HPI. Exam Narrative: General: Nontoxic-appearing gentleman the semi-Garcia position in bed. Weight: 70 kg. BMI: 22.1. HEENT: PERRL, EOMI. Sclera anicteric. Oral mucosa moist. Oropharynx clear. Neck: Supple. Respiratory: Lungs are clear to auscultation bilaterally. Cardiovascular: Regular rate and rhythm with S1-S2. Gastrointestinal: Abdomen is soft, nontender, and nondistended with positive bowel sounds. Skin: Warm and dry. No rash or lesions on limited exam. Extremities: No cyanosis, clubbing, or edema. Radial and pedal pulses intact. Neurological: Alert. Cranial nerves 2-12 are grossly intact. No gross focal deficits to casual conversation. Psychiatric: Pleasant and cooperative with normal mood and affect. Judgment and insight intact. Objective Data Vital Signs Vital Signs: Vital Signs - 24 hr 02/20/24 11:41 02/20/24 14:41 02/20/24 16:39 Temperature 96.4 F L Pulse Rate 98 68 85 Respiratory Rate 20 16 16 Blood Pressure 123/86 138/95 H 130/86 Pulse Oximetry 100 99 99 Oxygen Delivery Room Air 02/20/24 18:02 02/20/24 18:00 02/20/24 17:30 Temperature 98.0 F Pulse Rate 116 H 64 Respiratory Rate 20 Blood Pressure 141/83 H Pulse Oximetry 99 Oxygen Delivery Room Air 02/20/24 20:12 02/20/24 23:27 02/20/24 20:00 Temperature 98.0 F 98.0 F Pulse Rate 71 64 74 Respiratory Rate 20 20 Blood Pressure 128/79 117/75 Pulse Oximetry 100 100 Oxygen Delivery 02/20/24 22:00 02/21/24 00:00 02/21/24 02:00 Temperature Pulse Rate 68 63 68 Respiratory Rate Blood Pressure Pulse Oximetry Oxygen Delivery 02/21/24 04:04 02/21/24 04:00 02/21/24 06:00 Temperature 98.2 F Pulse Rate 74 67 64 Respiratory Rate 20 Blood Pressure 148/72 H Pulse Oximetry 99 Oxygen Delivery 02/21/24 08:00 Temperature 99.4 F Pulse Rate 78 Respiratory Rate 20 Blood Pressure 146/78 H Pulse Oximetry 99 Oxygen Delivery Intake/Output Intake/Output: Intake & Output 02/18/24 02/19/24 02/20/24 02/21/24 23:59 23:59 23:59 23:59 Intake Total 240 1000 Balance 240 1000 Meds/Results Medications: Active Medications Generic Name Dose Route Start Last Admin Trade Name Freq PRN Reason Stop Dose Admin Acetaminophen 650 mg 02/20/24 16:02 Acetaminophen 325 Mg Tablet PO Q4H PRN Mild Pain (1-3) or Fever Perflutren Lipid Microsphere 0 ml 02/20/24 21:50 Perflutren Lipid Microspheres 1.5 Ml Vial Diluted To 10 Ml Total Volume IV PUSH 02/23/24 21:50 ONCE PRN adequate visualization Protocol Radiology Results: ITS Impressions Abdomen/Pelvis CT 02/20/24 13:28 IMPRESSION: 1. Diverticulosis. No acute intra-abdominal/pelvic process. 2. Nonobstructing left nephrolithiasis. 3. Prostatomegaly. Labs Labs: Laboratory Results - last 24 hr 02/20/24 02/20/24 02/20/24 12:28 12:29 15:02 WBC 6.7 RBC 4.80 Hgb 12.9 L Hct 40.4 L MCV 84.2 MCH 26.9 MCHC 31.9 L RDW 15.4 H Plt Count 218 MPV 9.8 Immature Gran % (Auto) 0.1 Neut % (Auto) 70.1 Lymph % (Auto) 23.7 [place] % (Auto) 5.5 Eos % (Auto) 0.3 Baso % (Auto) 0.3 Lymph # (Auto) 1.58 [place] # (Auto) 0.4 Eos # (Auto) 0.0 Baso # (Auto) 0.0 Abs Immat Gran (auto) 0.01 Absolute Neuts (auto) 4.7 Absolute Nucleated RBC 0.000 Nucleated RBC % 0.0 PT 14.5 INR 1.1 APTT 27.9 Sodium 142 Potassium 3.9 Chloride 110 H Carbon Dioxide 26 Anion Gap 6 BUN 16 Creatinine 1.00 Estim Creat Clear Calc 60 Estimated GFR > 60 Glucose 123 H Calcium 8.4 Magnesium Total Bilirubin 0.5 AST 24 ALT 15 Alkaline Phosphatase 77 Troponin I < 0.012 < 0.012 Total Protein 7.0 Albumin 4.1 Lipase 97 Blood Type A Positive Antibody Screen Negative 02/20/24 02/20/24 02/21/24 16:50 22:33 03:38 WBC 6.7 RBC 5.18 Hgb 14.0 10.4 L D Hct 42.9 31.8 L MCV 82.8 MCH 27.0 MCHC 32.6 RDW 15.3 H Plt Count 204 MPV 10.5 H Immature Gran % (Auto) 0.1 Neut % (Auto) 64.4 Lymph % (Auto) 29.9 [place] % (Auto) 4.9 Eos % (Auto) 0.4 Baso % (Auto) 0.3 Lymph # (Auto) 2.01 [place] # (Auto) 0.3 Eos # (Auto) 0.0 Baso # (Auto) 0.0 Abs Immat Gran (auto) 0.01 Absolute Neuts (auto) 4.3 Absolute Nucleated RBC 0.000 Nucleated RBC % 0.0 PT INR APTT Sodium 138 Potassium 3.8 Chloride 113 H Carbon Dioxide 23 Anion Gap 2 L BUN 15 Creatinine 0.90 Estim Creat Clear Calc 66 Estimated GFR > 60 Glucose 90 Calcium 7.3 L Magnesium 2.0 Total Bilirubin AST ALT Alkaline Phosphatase Troponin I Total Protein Albumin Lipase Blood Type Antibody Screen 02/21/24 02/21/24 03:39 09:32 WBC 5.2 RBC 3.64 L Hgb 9.6 L 9.7 L Hct 30.6 L 30.1 L MCV 84.1 MCH 26.4 MCHC 31.4 L RDW 15.0 H Plt Count 171 MPV 10.3 Immature Gran % (Auto) Neut % (Auto) Lymph % (Auto) [place] % (Auto) Eos % (Auto) Baso % (Auto) Lymph # (Auto) [place] # (Auto) Eos # (Auto) Baso # (Auto) Abs Immat Gran (auto) Absolute Neuts (auto) Absolute Nucleated RBC Nucleated RBC % PT INR APTT Sodium Potassium Chloride Carbon Dioxide Anion Gap BUN Creatinine Estim Creat Clear Calc Estimated GFR Glucose Calcium Magnesium Total Bilirubin AST ALT Alkaline Phosphatase Troponin I Total Protein Albumin Lipase Blood Type Antibody Screen Quality VTE Prophylaxis VTE prophylaxis: mechanical ordered
[2024-02-21 12:23] LABS: Iron 89 ug/dL (49-181)
--- NOTE | 2024-02-21 12:24 | WPDGIPROGNO ---
Progress Note: A&P Assessment and Plan (1) Diverticulosis: Code(s): K57.90 - Diverticulosis of intestine, part unspecified, without perforation or abscess without bleeding Status: Acute (2) Bloody diarrhea: Code(s): R19.7 - Diarrhea, unspecified Status: Acute (3) Rectal bleeding: Code(s): K62.5 - Hemorrhage of anus and rectum Status: Acute Assessment and Plan: patient is already on clear liquid diet closely monitor the patient H&H has dropped down to 9.6 patient continues to pass red blood in the stool will recheck the H&H we prepped the patient for upper endoscopy and colonoscopy tomorrow risks of the procedure have been discussed with the patient Subjective Date/time seen: 02/21/24 12:24 Interval history: however patient seen covering GI on the weekend patient said that he had couple of bowel movements last night and he had blood in the stool the patient is being seen for rectal bleeding. Patient is scheduled for colonoscopy on Friday but as per him overnight he had a few bowel movements and I did discuss with the nurses and according to them patient did have 2 - 3 bowel movements with red blood in the stool. Patient denies any abdominal painias history of perforated peptic ulcer disease in the past Review of Systems Review of Systems: otherwise negative Exam Narrative: no acute distress HENMT: Other: pupil equally reactive Neck: Other: supple Resp: Other: clear to auscultation bilateral Cardio: Other: S1-S2 regular rate GI: Other: soft and nontender bowel sounds positive Neuro: Other: intact Extrem: Other: intact Objective Data Vital Signs Vital Signs: Vital Signs - 24 hr 02/20/24 14:41 02/20/24 16:39 02/20/24 18:02 Temperature Pulse Rate 68 85 Respiratory Rate 16 16 Blood Pressure 138/95 H 130/86 Pulse Oximetry 99 99 Oxygen Delivery Room Air 02/20/24 18:00 02/20/24 17:30 02/20/24 20:12 Temperature 98.0 F 98.0 F Pulse Rate 116 H 64 71 Respiratory Rate 20 20 Blood Pressure 141/83 H 128/79 Pulse Oximetry 99 100 Oxygen Delivery 02/20/24 23:27 02/20/24 20:00 02/20/24 22:00 Temperature 98.0 F Pulse Rate 64 74 68 Respiratory Rate 20 Blood Pressure 117/75 Pulse Oximetry 100 Oxygen Delivery 02/21/24 00:00 02/21/24 02:00 02/21/24 04:04 Temperature 98.2 F Pulse Rate 63 68 74 Respiratory Rate 20 Blood Pressure 148/72 H Pulse Oximetry 99 Oxygen Delivery 02/21/24 04:00 02/21/24 06:00 02/21/24 08:00 Temperature 99.4 F Pulse Rate 67 64 78 Respiratory Rate 20 Blood Pressure 146/78 H Pulse Oximetry 99 Oxygen Delivery Intake/Output Intake/Output: Intake & Output 02/18/24 02/19/24 02/20/24 02/21/24 23:59 23:59 23:59 23:59 Intake Total 240 1000 Balance 240 1000 Meds/Results Medications: Active Medications Generic Name Dose Route Start Last Admin Trade Name Freq PRN Reason Stop Dose Admin Acetaminophen 650 mg 02/20/24 16:02 Acetaminophen 325 Mg Tablet PO Q4H PRN Mild Pain (1-3) or Fever Perflutren Lipid Microsphere 0 ml 02/20/24 21:50 Perflutren Lipid Microspheres 1.5 Ml Vial Diluted To 10 Ml Total Volume IV PUSH 02/23/24 21:50 ONCE PRN adequate visualization Protocol Radiology Results: ITS Impressions Abdomen/Pelvis CT 02/20/24 13:28 IMPRESSION: 1. Diverticulosis. No acute intra-abdominal/pelvic process. 2. Nonobstructing left nephrolithiasis. 3. Prostatomegaly. Labs Labs: Laboratory Results - last 24 hr 02/20/24 02/20/24 02/20/24 12:28 12:29 15:02 WBC 6.7 RBC 4.80 Hgb 12.9 L Hct 40.4 L MCV 84.2 MCH 26.9 MCHC 31.9 L RDW 15.4 H Plt Count 218 MPV 9.8 Immature Gran % (Auto) 0.1 Neut % (Auto) 70.1 Lymph % (Auto) 23.7 [place] % (Auto) 5.5 Eos % (Auto) 0.3 Baso % (Auto) 0.3 Lymph # (Auto) 1.58 [place] # (Auto) 0.4 Eos # (Auto) 0.0 Baso # (Auto) 0.0 Abs Immat Gran (auto) 0.01 Absolute Neuts (auto) 4.7 Absolute Nucleated RBC 0.000 Nucleated RBC % 0.0 PT 14.5 INR 1.1 APTT 27.9 Sodium 142 Potassium 3.9 Chloride 110 H Carbon Dioxide 26 Anion Gap 6 BUN 16 Creatinine 1.00 Estim Creat Clear Calc 60 Estimated GFR > 60 Glucose 123 H Calcium 8.4 Magnesium Iron Total Bilirubin 0.5 AST 24 ALT 15 Alkaline Phosphatase 77 Troponin I < 0.012 < 0.012 Total Protein 7.0 Albumin 4.1 Lipase 97 Blood Type A Positive Antibody Screen Negative 02/20/24 02/20/24 02/21/24 16:50 22:33 03:38 WBC 6.7 RBC 5.18 Hgb 14.0 10.4 L D Hct 42.9 31.8 L MCV 82.8 MCH 27.0 MCHC 32.6 RDW 15.3 H Plt Count 204 MPV 10.5 H Immature Gran % (Auto) 0.1 Neut % (Auto) 64.4 Lymph % (Auto) 29.9 [place] % (Auto) 4.9 Eos % (Auto) 0.4 Baso % (Auto) 0.3 Lymph # (Auto) 2.01 [place] # (Auto) 0.3 Eos # (Auto) 0.0 Baso # (Auto) 0.0 Abs Immat Gran (auto) 0.01 Absolute Neuts (auto) 4.3 Absolute Nucleated RBC 0.000 Nucleated RBC % 0.0 PT INR APTT Sodium 138 Potassium 3.8 Chloride 113 H Carbon Dioxide 23 Anion Gap 2 L BUN 15 Creatinine 0.90 Estim Creat Clear Calc 66 Estimated GFR > 60 Glucose 90 Calcium 7.3 L Magnesium 2.0 Iron Total Bilirubin AST ALT Alkaline Phosphatase Troponin I Total Protein Albumin Lipase Blood Type Antibody Screen 02/21/24 02/21/24 03:39 09:32 WBC 5.2 RBC 3.64 L Hgb 9.6 L 9.7 L Hct 30.6 L 30.1 L MCV 84.1 MCH 26.4 MCHC 31.4 L RDW 15.0 H Plt Count 171 MPV 10.3 Immature Gran % (Auto) Neut % (Auto) Lymph % (Auto) [place] % (Auto) Eos % (Auto) Baso % (Auto) Lymph # (Auto) [place] # (Auto) Eos # (Auto) Baso # (Auto) Abs Immat Gran (auto) Absolute Neuts (auto) Absolute Nucleated RBC Nucleated RBC % PT INR APTT Sodium Potassium Chloride Carbon Dioxide Anion Gap BUN Creatinine Estim Creat Clear Calc Estimated GFR Glucose Calcium Magnesium Iron 89 Total Bilirubin AST ALT Alkaline Phosphatase Troponin I Total Protein Albumin Lipase Blood Type Antibody Screen
[2024-02-21 12:33] LABS: Percent Iron Saturation 36 % (20-50)
[2024-02-21 12:50] LABS: Hematocrit 29.5 % (42.0-52.0); Hemoglobin 9.1 g/dL (14.0-18.0)
[2024-02-21 13:05] LABS: CRP < 0.5 mg/dL (<1.0)
[2024-02-21 14:46] LABS: Hemoglobin 9.1 g/dL (14.0-18.0)
[2024-02-21] MEDS: PEG (High)/E-LYTE SOLN 4,000 ML BTL 4000 ML PO (15:57)
[2024-02-21 21:27] LABS: Hematocrit 25.2 % (42.0-52.0); Hemoglobin 8.3 g/dL (14.0-18.0)
--- NOTE | 2024-02-21 21:50 | ECHO_ITS ---
Patient Info Name: Matt Matson Age: 68 years : 1955 Gender: Male Ht: 70 in Wt: 154 lbs BSA: 1.86 m2 HR: 64 bpm BP: 148 / 72 mmHg Technical Quality: Good Exam Date: 02/21/2024 8:54 AM Exam Location: Echo Lab Patient Status: Outpatient Admit Date: 02/20/2024 Staff Ordering Physician: Maryellen Aly PA-C Veneer Splicer: Francine Chong RDCS Attending Provider: Kory Chung MD Referring Physician: Sheeba KHAN; Exam Type: CA echo doppler color flow Study Info Indications - ABNORMAL EKG Summary 1. Left ventricular chamber dimension is normal. 2. Left ventricular systolic function is normal, estimated at 60-65%. 3. The left ventricular diastolic function is grade I diastolic dysfunction. 4. Right ventricular chamber dimension is normal. 5. Right ventricular systolic function is normal. 6. There is mild mitral valve regurgitation. 7. The tricuspid valve leaflets are normal. 8. The aortic valve is trileaflet. 9. There is no aortic valve stenosis. 10. There is mild aortic valve regurgitation. Left Ventricle Left ventricular chamber dimension is normal. Left ventricular systolic function is normal, estimated at 60-65%. There is no increased left ventricular wall thickness. Left ventricular septal wall motion is normal. The left ventricular diastolic function is grade I diastolic dysfunction. Right Ventricle Right ventricular chamber dimension is normal. Right ventricular systolic function is normal. Left Atria Left atrial chamber dimension is normal. Right Atria Right atrial chamber dimension is normal. Aortic Valve The aortic valve is trileaflet. There is no aortic valve sclerosis. There is no aortic valve stenosis. There is mild aortic valve regurgitation. Pulmonic Valve The pulmonic valve is not well visualized. Mitral Valve The mitral valve has normal leaflets. There is no mitral valve stenosis. There is mild mitral valve regurgitation. Tricuspid Valve The tricuspid valve leaflets are normal. There is no significant tricuspid valve stenosis. There is trace tricuspid valve regurgitation. No pulmonary hypertension, estimated pulmonary arterial systolic pressure is 25 mmHg. Pericardium/Pleural The pericardium appears normal. There is no pericardial effusion. Inferior Vena Cava Normal inferior vena cava with >50% collapse upon inspiration consistent with normal right atrial pressure, 5 mmHg. Aorta The aortic root size at the sinus of Valsalva is normal. The prox ascending aorta size is normal. Left Ventricular Outflow Tract Name Value Normal LVOT 2D LVOT Diameter 2.3 cm LVOT Doppler LVOT Peak Gradient 2 mmHg LVOT Mean Gradient 1 mmHg LVOT VTI 16 cm LVOT VTI/AV VTI Ratio 0.7 LVOT Stroke Volume 65 ml LVOT CO 5.7 l/min LVOT CI 3.1 l/min/m2 Pulmonic Valve Name Value Normal RVOT Doppler RVOT Peak Gradient 3 mmHg PV Doppler PV Peak Gradient 4 mmHg Mitral Valve Name Value Normal MV Doppler MV Peak Gradient 5 mmHg MV Mean Gradient 1 mmHg MV Decel [place] 224 cm/s2 MV PHT 61 ms MV Area (PHT) 3.6 cm2 4.0-5.0 MV Area (Cont Eq VTI) 3.1 cm2 MV Diastolic Function MV E Peak Velocity 47 cm/s MV A Peak Velocity 87 cm/s MV E/A 0.5 MV Decel Time 210 ms MV Annular TDI MV E/e' (Septal) 12.4 <=8.0 MV E/e' (Lateral) 5.8 <=8.0 MV E/e' (Average) 9.1 Tricuspid Valve Name Value Normal TV Regurgitation Doppler TR Peak Velocity 226 cm/s TR Peak Gradient 20 mmHg Estimated PAP/RSVP RA Pressure 5 mmHg <=5 PA Systolic Pressure 25 mmHg <36 RV Systolic Pressure 25 mmHg <36 Aorta Name Value Normal Ascending Aorta Ao Root Diameter (MM) 3.7 cm Ao Root Diam Index (MM) 2.0 cm/m2 Aortic Valve Name Value Normal AV Doppler AV Peak Velocity 117 cm/s AV Peak Gradient 5 mmHg AV Mean Gradient 4 mmHg AV VTI 23 cm AV Area (Cont Eq VTI) 2.8 cm2 >=3.0 AV Area (Cont Eq Williams) 2.6 cm2 AV Regurgitation 2D LVOT Area 4.2 cm2 AV Regurgitation Doppler AR Decel Time 1,985 ms AR Decel [place] 241 cm/s2 AR PHT 576 ms Ventricles Name Value Normal LV Dimensions 2D/MM IVS Diastolic Thickness (2D) 1.7 cm 0.6-1.0 LVID Diastole (2D) 3.9 cm 4.2-5.8 LVIW Diastolic Thickness (2D) 1.5 cm 0.6-1.0 LVID Systole (2D) 2.8 cm 2.5-4.0 LVOT Diameter 2.3 cm LV Mass (2D Cubed) 257.91 g 88.00-224.00 LV Mass Index (2D Cubed) 139 g/m2 49-115 Relative Wall Thickness (2D) 0.78 LV Fractional Shortening/Ejection Fraction 2D/MM LV Fractional Shortening (2D) 28 % 25-43 LV EF (2D Teicholz) 54 % 52-72 LV Diastolic Volume (4C MOD) 148 ml LV EF (4C MOD) 60 % LV Diastolic Volume (2C MOD) 94 ml LV EF (2C MOD) 62 % LV Diastolic Volume (BP MOD) 120 ml 62-150 LV Diastolic Volume Index (BP MOD) 65 ml/m2 34-74 LV Systolic Volume (BP MOD) 47 ml 21-61 LV Systolic Volume Index (BP MOD) 25 ml/m2 11-31 LV EF (BP MOD) 61 % 52-72 LV Diastolic Length (4C) 8.5 cm LV Systolic Length (4C) 7.3 cm LV Stroke Volume (4C MOD) 89 ml Atria Name Value Normal LA Dimensions LA Dimension (MM) 3.6 cm 3.0-4.1 LA Volume (4C A-L) 39 ml LA Volume (BP A-L) 47 ml RA Dimensions RA Area (4C) 15.0 cm2 <=18.0 Report Signatures
[2024-02-22] VITALS (23 sets, daily range): BP systolic 103–140; BP diastolic 66–87; PULSE 61–114; RESP 12–24; TEMP 36.4–36.9; O2SAT 96–100
[2024-02-22 04:20] LABS: Hematocrit 23.7 % (42.0-52.0); Hemoglobin 7.8 g/dL (14.0-18.0)
--- NOTE | 2024-02-22 08:50 | PC.NURSE ---
Pt went down for a STAT CT and this RN accompanied.
[2024-02-22] MEDS: SODIUM CHLORIDE 0.9% IV 250 ML 30 ML IV CONT (09:26)
[2024-02-22] MEDS: TUBING, BLOOD PLUM PUMP TUBING 1 EACH XX (09:26)
--- NOTE | 2024-02-22 09:28 | PC.NURSE ---
Pt left the floor for EGD and colonoscopy.
[2024-02-22] MEDS: LACTATED RINGERS 1,000 ML 150 ML IV CONT (09:35)
--- NOTE | 2024-02-22 09:39 | P.PNAN_ITS ---
Anes - Initial Pre Proc Eval Procedure: Operation Date: 02/22/24 09:30 Proposed Procedures p Esophagogastroduodenoscopy & Colonoscopy - Goyo Wilkerson MD Date/Time: 02/22/24 09:39 Surgeon: Kory Chung MD Pre Op Diagnosis: Bloody Diarrhea/EDG With Ischemic Changes Patient Data Age: 68 Gender: M Height: 1.78 m Weight: 71.8 kg Last Vital Signs Temp 36.8 C 02/22/24 09:29 Pulse 70 02/22/24 09:29 Resp 20 02/22/24 09:29 BP 132/82 02/22/24 09:29 Pulse Ox 100 02/22/24 09:29 O2 Del Method Room Air 02/22/24 09:29 Allergies Allergy/AdvReac Type Severity Reaction Status Date / Time No Known Allergies Allergy Verified 02/20/24 11:57 Home Medications Medication Instructions Recorded Confirmed Type No Home Medications 02/20/24 02/20/24 History Laboratory Tests 02/20/24 02/21/24 02/21/24 12:29 03:39 09:32 Hgb 9.7 L g/dL (14.0-18.0) Hct 30.1 L % (42.0-52.0) Iron 89 ug/dL (49-181) TIBC 244 L ug/dL (265-497) % Saturation 36 % (20-50) Ferritin 41.90 ng/mL (11.1-264) C-Reactive Protein Blood Type A Positive Antibody Screen Negative Crossmatch See Detail 02/21/24 02/21/24 02/21/24 12:39 14:31 21:15 Hgb 9.1 L g/dL 9.1 L g/dL 8.3 L g/dL (14.0-18.0) (14.0-18.0) (14.0-18.0) Hct 29.5 L % 28.0 L % 25.2 L % (42.0-52.0) (42.0-52.0) (42.0-52.0) Iron TIBC % Saturation Ferritin C-Reactive Protein < 0.5 mg/dL (<1.0) Blood Type Antibody Screen Crossmatch 02/22/24 03:43 Hgb 7.8 L g/dL (14.0-18.0) Hct 23.7 L % (42.0-52.0) Iron TIBC % Saturation Ferritin C-Reactive Protein Blood Type Antibody Screen Crossmatch Patient hx anesthesia problems: none Family hx anesthesia problems: none Results Review: All pre-operative results and documents have been reviewed as part of the pre- operative evaluation. [facility] Past Medical History Medical History (Updated 02/20/24 @ 21:49 by Maryellen Aly PA-C) Hypertension Perforated peptic ulcer (1977) Surgical History Surgical History (Updated 02/20/24 @ 21:46 by Maryellen Aly PA-C) History of exploratory laparotomy for perforated peptic ulcer Family History Family History (Updated 02/20/24 @ 21:46 by Maryellen Aly PA-C) Other Family history non-contributory Social History Social History (Updated 02/20/24 @ 21:47 by Maryellen Aly PA-C) Social History: Surrogate medical decision maker: Cindy [place], spouse. Code status: Full code. Smoking status: Never smoker Alcohol intake: never Substance use: never Substance use type: does not use Do You Feel Safe in your Home?: Yes Lack of Transportation: No Lack of Food: Never True Current Housing: I Have Housing Concerned About Future Housing: No Difficulty Paying Gas/Electric Bills: No Difficulty Paying for Meds: No Currently Unemployed: No Education: Decline to Answer Difficulty w/ Childcare or Family Care: No Spiritual care concerns: No Anes - Eval Final PreProcedure Day of Procedure 02/22/24 09:39 Patient weight: normal Heart: regular rate and rhythm Lungs: clear to auscultation and normal air movement Airway: Mallampati scale class III Neurological: alert and oriented Last oral intake: >/= 8 hours ASA classification: III Emergent: yes Anesthetic plan: proceed Anesthesia type and monitoring: general GIVS and standard monitoring Results Review: All pre-operative results and documents have been reviewed as part of the pre- operative evaluation. Informed Consent: The patient's anesthetic plan and its attendant risks and benefits were discussed with the patient/family/POA. Questions were solicited and answers provided to the satisfaction of the patient/family/POA.
--- NOTE | 2024-02-22 09:47 | SUR.OPER ---
EGD start 940 end 942, Colonoscopy start 946
--- NOTE | 2024-02-22 10:45 | PC.NURSE ---
Pt returned to IMU room 200 from GI.
[2024-02-22 13:17] LABS: Hematocrit 31.5 % (42.0-52.0); Hemoglobin 10.5 g/dL (14.0-18.0)
--- NOTE | 2024-02-22 16:13 | P.PNIM_ITS ---
Progress Note: A&P Assessment and Plan (1) Rectal bleeding: Code(s): K62.5 - Hemorrhage of anus and rectum Status: Acute (2) Diverticulosis: Code(s): K57.90 - Diverticulosis of intestine, part unspecified, without perforation or abscess without bleeding Status: Acute (3) Abnormal EKG: Code(s): R94.31 - Abnormal electrocardiogram [ECG] [EKG] Status: Acute (4) Hypertension: Code(s): I10 - Essential (primary) hypertension Status: Acute Plan GI bleed from diverticular s/p Endoscopy with diverticular clip s/p 1 unit pRBC Iron panel no iron deficiency GI following Acute blood loss anemia hb 10.5 s/p 1PRBC from GI bleed continue monitoring Diverticulosis continue monitoring HTN titrate home meds with clinical course DVT prophylaxis on SCDs Subjective Date/time seen: 02/22/24 16:13 Interval history: Endoscopy showed multiple diverticuli in te sigmoid with one that appeared to be the source of bleeding ans was clipped. transfused 1 unit pRBC, iron profile replete Review of Systems Review of Systems: 12 systems were reviewed and are negativ e except for as per HPI. Exam Narrative: General: Nontoxic-appearing gentleman the semi-Garcia position in bed. Weight: 70 kg. BMI: 22.1. HEENT: PERRL, EOMI. Sclera anicteric. Oral mucosa moist. Oropharynx clear. Neck: Supple. Respiratory: Lungs are clear to auscultation bilaterally. Cardiovascular: Regular rate and rhythm with S1-S2. Gastrointestinal: Abdomen is soft, nontender, and nondistended with positive bowel sounds. Skin: Warm and dry. No rash or lesions on limited exam. Extremities: No cyanosis, clubbing, or edema. Radial and pedal pulses intact. Neurological: Alert. Cranial nerves 2-12 are grossly intact. No gross focal deficits to casual conversation. Psychiatric: Pleasant and cooperative with normal mood and affect. Judgment and insight intact. Objective Data Vital Signs Vital Signs: Vital Signs - 24 hr 02/21/24 18:00 02/21/24 20:18 02/21/24 20:00 Temperature 97.7 F Pulse Rate 77 74 84 Respiratory Rate 20 Blood Pressure 132/82 Pulse Oximetry 100 Oxygen Delivery 02/21/24 22:00 02/21/24 23:48 02/21/24 20:55 Temperature 97.8 F Pulse Rate 72 74 Respiratory Rate 20 Blood Pressure 130/63 Pulse Oximetry 100 Oxygen Delivery Room Air 02/22/24 00:00 02/22/24 00:00 02/22/24 02:00 Temperature Pulse Rate 74 74 Respiratory Rate Blood Pressure Pulse Oximetry Oxygen Delivery Room Air 02/22/24 04:06 02/22/24 04:00 02/22/24 04:00 Temperature 98.1 F Pulse Rate 114 H 104 H Respiratory Rate 20 Blood Pressure 139/72 Pulse Oximetry 99 Oxygen Delivery Room Air 02/22/24 06:00 02/22/24 07:53 02/22/24 08:00 Temperature 98.2 F Pulse Rate 74 78 Respiratory Rate 12 Blood Pressure 137/68 Pulse Oximetry 99 Oxygen Delivery Room Air 02/22/24 08:00 02/22/24 09:19 02/22/24 09:29 Temperature 97.9 F 98.2 F Pulse Rate 72 68 70 Respiratory Rate 16 20 Blood Pressure 129/73 132/82 Pulse Oximetry 96 100 Oxygen Delivery Room Air 02/22/24 10:12 02/22/24 10:22 02/22/24 10:32 Temperature Pulse Rate 81 73 75 Respiratory Rate 20 20 20 Blood Pressure 103/66 125/79 130/80 Pulse Oximetry 100 97 100 Oxygen Delivery Room Air Room Air Room Air 02/22/24 09:41 02/22/24 10:26 02/22/24 10:41 Temperature 98.2 F 97.6 F 97.6 F Pulse Rate 88 73 75 Respiratory Rate 18 16 20 Blood Pressure 120/83 136/81 130/80 Pulse Oximetry 96 100 100 Oxygen Delivery 02/22/24 11:41 02/22/24 12:00 02/22/24 12:00 Temperature 98.1 F 97.6 F Pulse Rate 63 71 Respiratory Rate 16 12 Blood Pressure 129/70 140/75 Pulse Oximetry 99 99 Oxygen Delivery Room Air 02/22/24 12:00 02/22/24 14:00 Temperature Pulse Rate 61 84 Respiratory Rate Blood Pressure Pulse Oximetry Oxygen Delivery Intake/Output Intake/Output: Intake & Output 02/19/24 02/20/24 02/21/24 02/22/24 23:59 23:59 23:59 23:59 Intake Total 240 2910 400 Output Total 250 Balance 240 2910 150 Meds/Results Medications: Active Medications Generic Name Dose Route Start Last Admin Trade Name Frank PRN Reason Stop Dose Admin Acetaminophen 650 mg 02/20/24 16:02 Acetaminophen 325 Mg Tablet PO Q4H PRN Mild Pain (1-3) or Fever Sodium Chloride 250 mls @ 30 mls/hr 02/22/24 08:15 02/22/24 09:26 Normal Saline Iv IV CONT 02/22/24 16:34 30 mls/hr .[id number] STA Administration Morphine Sulfate 2 mg 02/21/24 21:17 Morphine Sulfate (*Crx) 2 Mg/Ml Inj IV PUSH Q4H PRN Pain Rated 7-10 Perflutren Lipid Microsphere 0 ml 02/20/24 21:50 Perflutren Lipid Microspheres 1.5 Ml Vial Diluted To 10 Ml Total Volume IV PUSH 02/23/24 21:50 ONCE PRN adequate visualization Protocol Radiology Results: ITS Impressions Abdomen/Pelvis CT 02/20/24 13:28 IMPRESSION: 1. Diverticulosis. No acute intra-abdominal/pelvic process. 2. Nonobstructing left nephrolithiasis. 3. Prostatomegaly. Abdomen/Pelvis CTA 02/22/24 08:59 IMPRESSION: 1. 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 2. Left inguinal hernia containing fat. Labs Labs: Laboratory Results - last 24 hr 02/20/24 02/21/24 02/22/24 12:29 21:15 03:43 Hgb 8.3 L 7.8 L Hct 25.2 L 23.7 L Blood Type A Positive Antibody Screen Negative Crossmatch See Detail 02/22/24 13:11 Hgb 10.5 L Hct 31.5 L Blood Type Antibody Screen Crossmatch Quality VTE Prophylaxis VTE prophylaxis: mechanical ordered
[2024-02-23 05:21] LABS: Basophils Percent Auto 0.1 % (0.2-1.2); Eosinophils Percent Auto 0.1 % (0-4.4); Hematocrit 27.5 % (42.0-52.0); Hemoglobin 8.9 g/dL (14.0-18.0); Immature Granulocyte Absolute 0.03 K/mm3 (0.00-0.031); Immature Granulocyte Percent A 0.4 % (0-0.5); Lymphocytes Absolute Auto 2.53 K/mm3 (0.9-3.2); Lymphocytes Percent Auto 33.5 % (18.3-44.2); Mean Corpuscular HGB Conc 32.4 g/dl (32-36); Mean Corpuscular Hemoglobin 27.7 pg (26-34); Mean Corpuscular Volume 85.7 fl (80-100); Mean Platelet Volume 10.9 fl (7.4-10.4); Monocytes Absolute Auto 0.5 K/mm3 (0.1-0.6); Monocytes Percent Auto 6.9 % (2.6-8.5); Neutrophils Absolute Auto 4.5 K/mm3 (1.3-6.7); Platelet Count Result 184 k/mm3 (150-375); Red Blood Count 3.21 M/mm3 (4.6-6.20); White Blood Count 7.6 K/mm3 (4.5-10.0)
[2024-02-23 05:46] LABS: Alanine Aminotransferase 10 U/L (6-50); Albumin Level 2.7 g/dL (3.5-5.1); Alkaline Phosphatase 55 U/L (38-126); Anion Gap 2 mmol/L (4-12); Aspartate Amino Transferase 17 U/L (17-59); Bilirubin,Total 0.4 mg/dL (0.2-1.3); Blood Urea Nitrogen 6 mg/dL (9-20); Calcium 7.8 mg/dL (8.4-10.2); Carbon Dioxide 26 mmol/L (22-30); Chloride 110 mmol/L (98-107); Estimated CRCL calculation 62 ml/min; Estimated Glomerular Filt Rate > 60; Glucose 86 mg/dL (65-110); Potassium 3.3 mmol/L (3.4-5.0); Sodium 138 mmol/L (137-145)
[2024-02-23 07:55] LABS: Hematocrit 28.6 % (42.0-52.0); Hemoglobin 9.4 g/dL (14.0-18.0)
[2024-02-23 08:00] VITALS: BP 133/72; PULSE 72; RESP 18; TEMP 36.7; O2SAT 100
[2024-02-23] MEDS: POTASSIUM CHLORIDE 20 MEQ ER TABLET 40 MEQ PO (10:25)
[2024-02-23 12:34] VITALS: BP 130/71; PULSE 72; RESP 16; TEMP 36.6; O2SAT 100
--- NOTE | 2024-02-23 14:24 | P.DS_ITS ---
DS: Admitting Diagnosis Discharge Date 02/23/24 Admitting Diagnosis rectal bleed DS: Discharge Diagnosis Discharge Diagnosis (1) Rectal bleeding: Code(s): K62.5 - Hemorrhage of anus and rectum Status: Acute DS: Summary Hospital Course Hospital Course: This is a very pleasant 68-year-old male with hypertension (not currently on medication) and remote history of peptic ulcers who presented to the emergency department via private vehicle for evaluation of blood in stools. The patient provides the following history. He was in his usual state of health yesterday evening when he developed diarrhea with blood tinged stools. Since that time he has had several more episodes of bloody stools described as pink to bright red blood. He is otherwise feeling okay. He denies straining to have a bowel movement. Weight has remained stable. He has never had a colonoscopy and denies family history of colon cancer. He also denies fever, chills, sweats, lightheadedness, dizziness, abdominal pain, nausea, and vomiting. Of note, an EKG was performed on arrival to the ED and showed ST T-wave abnormalities for which the adult basic education instructor was consulted. As the patient is having no chest pain whatsoever they do not recommend any for interventions at this time but will follow with the patient. With further questioning the patient denies having a cardiac history and has not had exertional chest pain or shortness of breath. In the ED: Vital signs were stable on arrival. Labs were significant for hemoglobin of 12.9, hematocrit 40.4%, glucose 123. CT of the abdomen and pelvis showed no acute findings but noted diverticulosis, nonobstructing left nephrolithiasis, and prostatomegaly. He is being admitted in this setting for close monitoring and GI consultation. Gi was consulted and patient underwent EGD and colonoscopy which showed a diverticular bleed that was clipped. Patient received 1 unit of pRBC, hb has remained stable and patient noted bloody stool has ceased. Thus patient was discharged to repeat CBC in 3 days F/u with PCP in 3-5 days and Gi as instructed. Assessment and Plan (1) Rectal bleeding: Code(s): K62.5 - Hemorrhage of anus and rectum Status: Acute (2) Diverticulosis: Code(s): K57.90 - Diverticulosis of intestine, part unspecified, without perforation or abscess without bleeding Status: Acute (3) Abnormal EKG: Code(s): R94.31 - Abnormal electrocardiogram [ECG] [EKG] Status: Acute (4) Hypertension: Code(s): I10 - Essential (primary) hypertension Status: Acute Plan GI bleed from diverticular s/p Endoscopy with diverticular clip s/p 1 unit pRBC Iron panel no iron deficiency bloody stool resolved GI following Acute blood loss anemia hb 9.4 s/p 1PRBC from GI bleed stable Diverticulosis continue monitoring HTN titrate home meds with clinical course Time Spent with Patient Time attestation: Total time spent providing and/or coordinating discharge services: DS: Data Data Completed and Pending Labs on day of discharge: Labs from last 24 hours 02/23/24 02/23/24 07:48 03:45 WBC 7.6 RBC 3.21 L Hgb 9.4 L 8.9 L Hct 28.6 L 27.5 L MCV 85.7 MCH 27.7 MCHC 32.4 RDW 15.0 H Plt Count 184 MPV 10.9 H Immature Gran % (Auto) 0.4 Neut % (Auto) 59.0 Lymph % (Auto) 33.5 [place] % (Auto) 6.9 Eos % (Auto) 0.1 Baso % (Auto) 0.1 L Lymph # (Auto) 2.53 [place] # (Auto) 0.5 Eos # (Auto) 0.0 Baso # (Auto) 0.0 Abs Immat Gran (auto) 0.03 Absolute Neuts (auto) 4.5 Absolute Nucleated RBC 0.000 Nucleated RBC % 0.0 Sodium 138 Potassium 3.3 L Chloride 110 H Carbon Dioxide 26 Anion Gap 2 L BUN 6 L D Creatinine 1.00 Estim Creat Clear Calc 62 Estimated GFR > 60 Glucose 86 Calcium 7.8 L Magnesium 2.0 Total Bilirubin 0.4 AST 17 ALT 10 Alkaline Phosphatase 55 Total Protein 5.0 L Albumin 2.7 L Discharge Plan Discharge Attending physician on discharge: Elissa Sheppard Consulting providers: Jonny Gorman; Rickie Stout Discharging Clinician: Elissa Sheppard Anticipated Discharge Date/Time: 02/23/24 14:21 Patient Disposition: Home, Self-Care Activity: as tolerated Diet: as tolerated Patient Instructions: Antibiotic Form Stand Alone Forms: General Discharge Information Follow-up/Referrals: PHYSICIAN,GENERAL OFFICE DISPATCHER [Primary Care Provider] - (F/u with PCP in 3-5 days ) Jonny Gorman MD [Physician] - (F/u with GI as instructed ) Other Ambulatory Orders: Complete Blood Count with Diff (Routine) Timeframe: 3 Days Location: Determined by Patient Ordered By: Elissa Sheppard Date of admission: 02/21/24 12:10 Primary Care Provider: PHYSICIAN,GENERAL OFFICE DISPATCHER Admitting Provider: Kory Chung Attending physician on admission: Kory Chung Condition: Stable
== END 2024-02-23 16:00 | disposition home or self-care (01) | DRG 378 ==
LOC: ANHED 16:01 → ANHIMU 16:59
PROVIDERS: Emergency Medicine; Internal Medicine Gastroenterology; Physician Assistant; Admitting Provider Internal Medicine; Emergency Provider Emergency Medicine; Visit Provider Internal Medicine
PROC: 0DJ08ZZ Inspection of Upper Intestinal Tract, Via Natural or Artificial Opening Endoscopic (ICD-10-PCS; CPT 43235; principal; 2024-02-22 09:30)
DX: K57.31 Diverticulosis of large intestine without perforation or abscess with bleeding (principal); D62 Acute posthemorrhagic anemia; K29.70 Gastritis, unspecified, without bleeding; K44.9 Diaphragmatic hernia without obstruction or gangrene; K64.8 Other hemorrhoids; R94.31 Abnormal electrocardiogram [ECG] [EKG]; I10 Essential (primary) hypertension; Z87.11 Personal history of peptic ulcer disease
CPT/HCPCS: 36415; 36430; 74174; 74177; 80048; 80053; 82728; 83540; 83550; 83690; 83735; 84484; 85014; 85018; 85025; 85027; 85610; 85730; 86140; 86850; 86900; 86901; 86923; 87045; 87427; 87449; 93005; 93306; 96361; 96374; 99285; A9270; G0378; J0171; J1100; J2405; J2470; J2704; J7030; J7050; J7120; P9016; Q9967

== ENCOUNTER 2024-03-25 15:15 | Emergency (ER) | payer MEDICARE, SELFPAY ==
--- NOTE | ~2024-03-25 | CT_ITS ---
EXAMINATION: CT abdomen pelvis wo con DATE: 03/25/2024 16:42 INDICATION: Left ureteral stone TECHNIQUE: Computed tomography (CT) of the abdomen and pelvis was performed without intravenous contr ast. Automated exposure control and iterative reconstruction technique were employed. The dose-length product was 200.92 mGy-cm. COMPARISON: 02/22/2024 FINDINGS: Atelectasis and mild bronchiectatic changes in the bilateral lower lobes. Heart size is normal. Ather osclerotic coronary artery calcification. No pericardial or pleural effusion. Mild pectus excavatum. There are few hepatic cysts measuring up to 1.3 cm. Liver, gallbladder, pancreas and bilateral adrena l glands are normal. Bilateral nephrolithiasis with 3 nonobstructing stones measuring up to 2 mm in t he right kidney. There is a 4 mm obstructing stone at the left ureterovesicular junction with mild le ft hydroureteronephrosis. There are 3 additional stones in the left kidney the largest at the lower p ole measuring 3 mm. Bladder is normal. There is prominent sigmoid and descending colon predominant di verticulosis without no bowel obstruction. Small fat-containing left inguinal hernia. No free intrape ritoneal gas or fluid. No pathologically enlarged abdominal or pelvic lymphadenopathy. Adjacent infla mmatory change to suggest diverticulitis. Lumbar levoscoliosis with severe spondylosis. Moderate iwona ateral hip osteoarthritis. IMPRESSION: 1. Bilateral nephrolithiasis with 4 mm obstructing stone at the left ureterovesicular junction with m ild left hydronephrosis. 2. Extensive diverticulosis. 3. Small fat-containing left inguinal hernia. Reviewed, dictated and finalized at location B. TIC FINISHER IMPRESSION: 1. Bilateral nephrolithiasis with 4 mm obstructing stone at the left ureteroves icular junction with mild left hydronephrosis. 2. Extensive diverticulosis. 3. Small fat-containing left inguinal hernia.
--- NOTE | ~2024-03-25 | XR_ITS ---
XR abdomen/kub 1V Ordering provider: Nayeli Gloria PA-C History: . kidney stone . Comparison: None. FINDINGS: BOWEL: Nonobstructive bowel gas pattern. ORGANOMEGALY: None. SIGNIFICANT PATHOLOGIC CALCIFICATIONS: None. Bowel loops overlapping both kidneys. OTHER: No free air is seen under the diaphragm. Levoscoliosis. Degenerative spine. Bilateral hip jesse re osteoarthritic changes. Metallic shadow is projected over the right sacrum. IMPRESSION: NO ACUTE ABDOMINAL FINDINGS. Reviewed, dictated and finalized at location A. E LEARNING DESIGNER
[2024-03-25 16:28] VITALS: BP 145/77; PULSE 58; RESP 18; TEMP 36.1; O2SAT 100
--- NOTE | 2024-03-25 16:31 | ED_ITS ---
HPI - Male Genitourinary General Chief complaint: Urogenital-Male <Carleen Ledesma PA-C - Last Filed: 03/25/24 16:31> Stated complaint: left testicular pain/vomiting <Carleen Ledesma PA-C - Last Filed: 03/25/24 16:31> Time Seen by Provider: 03/25/24 19:33 <Carleen Ledesma PA-C - Last Filed: 03/25/24 16:31> Focused HPI: 68-year-old male presents to the emergency department for left lower quadrant abdominal pain that radiates into his left testicle today. Patient reports a history of kidney stones. States at times it radiates to the left flank. Reports associated nausea and vomiting. No fevers, dysuria or hematuria. GENERAL: Well-appearing, well-nourished, and in no acute distress. HEAD: Normocephalic, atraumatic. CHEST: Clear to auscultation. ?No respiratory distress. ABD: Tenderness to the left lower quadrant and left CVA region. No rebound or rigidity. HEART: Regular rate and rhythm.? NEURO: ?Alert and oriented x3. Patient screened in triage and initial orders placed.? ?Additional care and disposition to be based upon?diagnostic testing and treatment. <Carleen Ledesma PA-C - Last Filed: 03/25/24 16:31> Related Data Allergies/Adverse reactions: Allergies Allergy/AdvReac Type Severity Reaction Status Date / Time No Known Allergies Allergy Verified 03/25/24 19:30 <Carleen Ledesma PA-C - Last Filed: 03/25/24 16:31> Review of Systems 2 Review of Systems: CONSTITUTIONAL: Denies fever GASTROINTESTINAL: Reports abdominal pain, nausea, vomiting GENITOURINARY: Denies dysuria or hematuria. <Nayeli Gloria PA-C - Last Filed: 03/25/24 21:32> All systems reviewed & are unremarkable except as noted in HPI and below < Nayeli Gloria PA-C - Last Filed: 03/25/24 21:32> PMFSH Past Medical History Medical History: Medical History (Updated 03/25/24 @ 21:26 by Nayeli Gloria PA-C) Perforated peptic ulcer (1977) Hypertension <Carleen Ledesma PA-C - Last Filed: 03/25/24 16:31> Surgical History Surgical History: Surgical History (Updated 02/20/24 @ 21:46 by Maryellen Aly PA-C) History of exploratory laparotomy for perforated peptic ulcer <Carleen Ledesma PA-C - Last Filed: 03/25/24 16:31> Family History Family History: Family History (Updated 02/20/24 @ 21:46 by Maryellen Aly PA-C) Other Family history non-contributory <Carleen Ledesma PA-C - Last Filed: 03/25/24 16:31> Social History Social History: Social History (Updated 02/20/24 @ 21:47 by Maryellen Aly PA-C) Social History: Surrogate medical decision maker: Cindy Matson, spouse. Code status: Full code. Smoking status: Never smoker Alcohol intake: never Substance use: never Substance use type: does not use Do You Feel Safe in your Home?: Yes Lack of Transportation: No Lack of Food: Never True Current Housing: I Have Housing Concerned About Future Housing: No Difficulty Paying Gas/Electric Bills: No Difficulty Paying for Meds: No Currently Unemployed: No Education: Decline to Answer Difficulty w/ Childcare or Family Care: No Spiritual care concerns: No <Carleen Ledesma PA-C - Last Filed: 03/25/24 16:31> Exam 2 Narrative: GENERAL: Well-appearing, well-nourished, and in no acute distress. HEAD: Normocephalic, atraumatic. EYES: EOMI. CHEST: Clear to auscultation. No respiratory distress. No wheezes rales or rhonchi HEART: Regular rate and rhythm. No murmur heard. Normal peripheral pulses. ABDOMEN: Soft, nontender, nondistended, normal active bowel sounds. EXTREMITIES: Normal range of motion. No edema. SKIN: Warm, dry, no rash. NEURO: No focal deficits. Alert and oriented x3. PSYCH: Normal mood and affect <Nayeli Gloria PA-C - Last Filed: 03/25/24 21:32> Course Course Emergency Course: Patient updated on his workup. Resting comfortably <Nayeli Gloria PA-C - Last Filed: 03/25/24 21:32> Vital Signs Vital signs: Vital Signs Temperature 97.0 F L 03/25/24 16:28 Pulse Rate 58 L 03/25/24 16:28 Respiratory Rate 18 03/25/24 16:28 Blood Pressure 145/77 H 03/25/24 16:28 Pulse Oximetry 100 03/25/24 16:28 Oxygen Delivery Room Air 03/25/24 16:28 Temperature 98.2 F 03/25/24 17:47 Pulse Rate 77 03/25/24 17:47 Respiratory Rate 18 03/25/24 17:47 Blood Pressure 144/92 H 03/25/24 17:47 Pulse Oximetry 99 03/25/24 17:47 Oxygen Delivery Room Air 03/25/24 16:28 <Carleen Ledesma PA-C - Last Filed: 03/25/24 16:31> Vital Signs Temperature 97.0 F L 03/25/24 16:28 Pulse Rate 58 L 03/25/24 16:28 Respiratory Rate 18 03/25/24 16:28 Blood Pressure 145/77 H 03/25/24 16:28 Pulse Oximetry 100 03/25/24 16:28 Oxygen Delivery Room Air 03/25/24 16:28 Temperature 98.2 F 03/25/24 17:47 Pulse Rate 77 03/25/24 17:47 Respiratory Rate 18 03/25/24 17:47 Blood Pressure 144/92 H 03/25/24 17:47 Pulse Oximetry 99 03/25/24 17:47 Oxygen Delivery Room Air 03/25/24 16:28 <Nayeli Gloria PA-C - Last Filed: 03/25/24 21:32> MDM - Male Genitourinary MDM Narrative Medical decision making narrative: Patient presents to the emergency department for abdominal pain, nausea vomiting. History of kidney stones. He is afebrile and nontoxic appearing. His vitals are stable. Cbc without leukocytosis. Metabolic panel with normal appearing kidney function. Urine without evidence of infection. Does show red blood cells. CT abdomen and pelvis shows a 4 mm left UVJ stone. Patient updated on his workup. Resting comfortably. He is to follow-up with urology. He was given warnings to return to the ER <Nayeli Gloria PA-C - Last Filed: 03/25/24 21:32> Differential Diagnosis Differential diagnosis: Likely urinary tract infection and other (Kidney stone) <Nayeli Gloria PA-C - Last Filed: 03/25/24 21:32> Lab Data Attestation: I reviewed the patient's lab results. <Nayeli Gloria PA-C - Last Filed: 03/25/24 21:32> Result diagrams: 03/25/24 17:38 03/25/24 17:38 <Carleen Ledesma PA-C - Last Filed: 03/25/24 16:31> Labs: Lab Results 03/25/24 03/25/24 Range/Units 17:38 20:46 WBC 8.9 (4.5-10.0) K/mm3 RBC 4.31 L (4.6-6.20) M/mm3 Hgb 11.6 L (14.0-18.0) g/dL Hct 36.9 L (42.0-52.0) % MCV 85.6 (80-100) fl MCH 26.9 (26-34) pg MCHC 31.4 L (32-36) g/dl RDW 15.2 H (11.5-14.5) % Plt Count 252 (150-375) k/mm3 MPV 9.7 (7.4-10.4) fl Immature Gran % (Auto) 0.3 (0-0.5) % Neut % (Auto) 90.9 H (45.5-73.1) % Lymph % (Auto) 6.1 L (18.3-44.2) % Kings % (Auto) 2.4 L (2.6-8.5) % Eos % (Auto) 0.1 (0-4.4) % Baso % (Auto) 0.2 (0.2-1.2) % Lymph # (Auto) 0.54 L (0.9-3.2) K/mm3 [place] # (Auto) 0.2 (0.1-0.6) K/mm3 Eos # (Auto) 0.0 (0-0.3) K/mm3 Baso # (Auto) 0.0 (0.0-0.1) K/mm3 Abs Immat Gran (auto) 0.03 (0.00-0.031) K/mm3 Absolute Neuts (auto) 8.1 H (1.3-6.7) K/mm3 Absolute Nucleated RBC 0.000 (0.0-0.012) K/mm3 Nucleated RBC % 0.0 (0.0-0.2) % Platelet Estimate Adequate (Adequate) Anisocytosis 1+ Ovalocytes 1+ Schistocytes None seen Sodium 139 (137-145) mmol/L Potassium 4.1 (3.4-5.0) mmol/L Chloride 108 H (98-107) mmol/L Carbon Dioxide 27 (22-30) mmol/L Anion Gap 4 (4-12) mmol/L BUN 15 D (9-20) mg/dL Creatinine 1.00 (0.7-1.3) mg/dL Estim Creat Clear Calc 62 ml/min Estimated GFR > 60 (59 - ) Glucose 138 H (65-110) mg/dL Calcium 8.9 (8.4-10.2) mg/dL Total Bilirubin 0.4 (0.2-1.3) mg/dL AST 24 (17-59) U/L ALT 16 (6-50) U/L Alkaline Phosphatase 77 (38-126) U/L Total Protein 7.0 (6.3-8.2) g/dL Albumin 4.3 (3.5-5.1) g/dL Lipase 80 (23-300) U/L Urine Color Yellow (Yellow) Urine Appearance Clear (Clear) Urine pH 6.5 (5.0-9.0) Ur Specific [place] 1.018 (1.001-1.035) Urine Protein Trace (Negative) mg/dL Urine Glucose (UA) Trace H (Negative) mg/dL Urine Ketones Trace H (Negative) mg/dL Ur Blood (Man) 3+ H (Negative) Urine Nitrate Negative (Negative) Urine Bilirubin Negative (Negative) Urine Urobilinogen 1.0 (<2.0) mg/dL Leukocyte Esterase Rfl Negative (Negative) HENRY/UL Urine RBC >100 H (0-2) /hpf Urine WBC 0-5 (0-3) /hpf Ur Squamous Epith Cells None seen (Few) /hpf Urine Bacteria None seen /hpf Urine Casts 0-2 <Carleen Ledesma PA-C - Last Filed: 03/25/24 16:31> Lab Results 03/25/24 03/25/24 Range/Units 17:38 20:46 WBC 8.9 (4.5-10.0) K/mm3 RBC 4.31 L (4.6-6.20) M/mm3 Hgb 11.6 L (14.0-18.0) g/dL Hct 36.9 L (42.0-52.0) % MCV 85.6 (80-100) fl MCH 26.9 (26-34) pg MCHC 31.4 L (32-36) g/dl RDW 15.2 H (11.5-14.5) % Plt Count 252 (150-375) k/mm3 MPV 9.7 (7.4-10.4) fl Immature Gran % (Auto) 0.3 (0-0.5) % Neut % (Auto) 90.9 H (45.5-73.1) % Lymph % (Auto) 6.1 L (18.3-44.2) % Kings % (Auto) 2.4 L (2.6-8.5) % Eos % (Auto) 0.1 (0-4.4) % Baso % (Auto) 0.2 (0.2-1.2) % Lymph # (Auto) 0.54 L (0.9-3.2) K/mm3 Kings # (Auto) 0.2 (0.1-0.6) K/mm3 Eos # (Auto) 0.0 (0-0.3) K/mm3 Baso # (Auto) 0.0 (0.0-0.1) K/mm3 Abs Immat Gran (auto) 0.03 (0.00-0.031) K/mm3 Absolute Neuts (auto) 8.1 H (1.3-6.7) K/mm3 Absolute Nucleated RBC 0.000 (0.0-0.012) K/mm3 Nucleated RBC % 0.0 (0.0-0.2) % Platelet Estimate Adequate (Adequate) Anisocytosis 1+ Ovalocytes 1+ Schistocytes None seen Sodium 139 (137-145) mmol/L Potassium 4.1 (3.4-5.0) mmol/L Chloride 108 H (98-107) mmol/L Carbon Dioxide 27 (22-30) mmol/L Anion Gap 4 (4-12) mmol/L BUN 15 D (9-20) mg/dL Creatinine 1.00 (0.7-1.3) mg/dL Estim Creat Clear Calc 62 ml/min Estimated GFR > 60 (59 - ) Glucose 138 H (65-110) mg/dL Calcium 8.9 (8.4-10.2) mg/dL Total Bilirubin 0.4 (0.2-1.3) mg/dL AST 24 (17-59) U/L ALT 16 (6-50) U/L Alkaline Phosphatase 77 (38-126) U/L Total Protein 7.0 (6.3-8.2) g/dL Albumin 4.3 (3.5-5.1) g/dL Lipase 80 (23-300) U/L Urine Color Yellow (Yellow) Urine Appearance Clear (Clear) Urine pH 6.5 (5.0-9.0) Ur Specific [place] 1.018 (1.001-1.035) Urine Protein Trace (Negative) mg/dL Urine Glucose (UA) Trace H (Negative) mg/dL Urine Ketones Trace H (Negative) mg/dL Ur Blood (Man) 3+ H (Negative) Urine Nitrate Negative (Negative) Urine Bilirubin Negative (Negative) Urine Urobilinogen 1.0 (<2.0) mg/dL Leukocyte Esterase Rfl Negative (Negative) HENRY/UL Urine RBC >100 H (0-2) /hpf Urine WBC 0-5 (0-3) /hpf Ur Squamous Epith Cells None seen (Few) /hpf Urine Bacteria None seen /hpf Urine Casts 0-2 <JORDANA Iverson Last Filed: 03/25/24 21:32> Imaging Data Radiologist's impression: ITS Impressions Abdomen/Pelvis CT 03/25/24 16:46 IMPRESSION: 1. Bilateral nephrolithiasis with 4 mm obstructing stone at the left ureterovesicular junction with mild left hydronephrosis. 2. Extensive diverticulosis. 3. Small fat-containing left inguinal hernia. <JORDANA Iverson Last Filed: 03/25/24 21:32> Critical Care Time Critical Care Time Critical Care Time: No <JORDANA Iverson Last Filed: 03/25/24 21:32> Discharge Plan Discharge Clinical Impression: Ureterolithiasis <JORDANA Lopez Last Filed: 03/25/24 16:31> Patient Disposition: Home, Self-Care <JORDANA Lopez Last Filed: 03/25/24 16:31> Condition: Improved <JORDANA Lopez Last Filed: 03/25/24 16:31> Instructions: Kidney Stones (ED), How to Strain Your Urine (ED) <JORDANA Lopez Last Filed: 03/25/24 16:31> Additional Instructions: Return to the ER if you experience fever, abdominal pain with nausea and vomiting, you are unable to keep down liquids or solids, pain or burning with urination, blood in the urine or any other symptoms that are concerning to you Remain well hydrated. [id number] pain medication as needed. Prescribed pain medication as needed. Strain your urine. Take tamsulosin daily Follow up with Urology <JORDANA Lopez Last Filed: 03/25/24 16:31> Patient Language: Armenian <JORDANA Lopez Last Filed: 03/25/24 16:31> Prescriptions: New tamsulosin 0.4 mg capsule 0.4 mg PO DAILY 7 Days Qty: 7 0RF hydrocodone-acetaminophen 5-325 mg tablet 1 tablet PO Q6H PRN (Reason: pain) Qty: 20 0RF <JORDANA Lopez Last Filed: 03/25/24 16:31> Follow-up/Referrals: PHYSICIAN,MRB ENGINEER [Primary Care Provider] - Erasto Atkinson MD [Physician] - <JORDANA Lopez Last Filed: 03/25/24 16:31>
[2024-03-25 17:45] LABS: Basophils Percent Auto 0.2 % (0.2-1.2); Eosinophils Percent Auto 0.1 % (0-4.4); Hematocrit 36.9 % (42.0-52.0); Hemoglobin 11.6 g/dL (14.0-18.0); Immature Granulocyte Absolute 0.03 K/mm3 (0.00-0.031); Immature Granulocyte Percent A 0.3 % (0-0.5); Lymphocytes Absolute Auto 0.54 K/mm3 (0.9-3.2); Lymphocytes Percent Auto 6.1 % (18.3-44.2); Mean Corpuscular HGB Conc 31.4 g/dl (32-36); Mean Corpuscular Hemoglobin 26.9 pg (26-34); Mean Corpuscular Volume 85.6 fl (80-100); Mean Platelet Volume 9.7 fl (7.4-10.4); Monocytes Absolute Auto 0.2 K/mm3 (0.1-0.6); Monocytes Percent Auto 2.4 % (2.6-8.5); Neutrophils Absolute Auto 8.1 K/mm3 (1.3-6.7); Neutrophils Percent Auto 90.9 % (45.5-73.1); Platelet Count Result 252 k/mm3 (150-375); Red Blood Count 4.31 M/mm3 (4.6-6.20); Red Cell Distribution Width 15.2 % (11.5-14.5); White Blood Count 8.9 K/mm3 (4.5-10.0)
[2024-03-25 17:47] VITALS: BP 144/92; PULSE 77; RESP 18; TEMP 36.8; O2SAT 99
[2024-03-25 18:01] LABS: Alanine Aminotransferase 16 U/L (6-50); Albumin Level 4.3 g/dL (3.5-5.1); Alkaline Phosphatase 77 U/L (38-126); Anion Gap 4 mmol/L (4-12); Aspartate Amino Transferase 24 U/L (17-59); Bilirubin,Total 0.4 mg/dL (0.2-1.3); Blood Urea Nitrogen 15 mg/dL (9-20); Calcium 8.9 mg/dL (8.4-10.2); Carbon Dioxide 27 mmol/L (22-30); Chloride 108 mmol/L (98-107); Estimated CRCL calculation 62 ml/min; Estimated Glomerular Filt Rate > 60; Glucose 138 mg/dL (65-110); Lipase 80 U/L (23-300); Potassium 4.1 mmol/L (3.4-5.0); Sodium 139 mmol/L (137-145)
[2024-03-25 18:27] LABS: Anisocytosis 1+; Ovalocytes 1+; Platelet Estimate Adequate (Adequate); Schistocytes None Seen
[2024-03-25 21:00] LABS: Add Urine Microscopic? YES; Appearance Urine Clear (Clear); Bacteria Urine None Seen /hpf; Bilirubin Urine Negative (Negative); Blood Urine 3+ (Negative); Color Urine Yellow (Yellow); Glucose Urine UA Trace mg/dL (Negative); Ketones Urine Trace mg/dL (Negative); Leukocyte Esterase Ur Negative LEU/UL (Negative); Nitrate Urine Negative (Negative); Non Pathogenic Casts 0-2; Protein Urine Trace mg/dL (Negative); RBC Urine >100 /hpf (0-2); Specific Grav Ur 1.018 (1.001-1.035); Squamous Epithelial Cell Urine None Seen /hpf (Few); WBC Urine 0-5 /hpf (0-3); pH Urine 6.5 (5.0-9.0)
[2024-03-25 22:32] VITALS: BP 146/89; PULSE 70; RESP 16; TEMP 36.8; O2SAT 100
== END 2024-03-25 22:35 | disposition home or self-care (01) ==
PROVIDERS: Physician Assistant; Emergency Provider Physician Assistant
DX: N13.2 Hydronephrosis with renal and ureteral calculous obstruction (principal); I10 Essential (primary) hypertension; K57.90 Diverticulosis of intestine, part unspecified, without perforation or abscess without bleeding; K40.90 Unilateral inguinal hernia, without obstruction or gangrene, not specified as recurrent
CPT/HCPCS: 36415; 74018; 74176; 80053; 81001; 83690; 85025; 99284